=== PATIENT | male | born 1955 | race Caucasian/White ===

== ENCOUNTER 2017-04-15 17:47 | Inpatient (IN) | payer MEDICARE, MEDICAID ==
--- NOTE | 2017-04-15 18:04 | ED Physician Chart ---
ED Chief Complaint/HPI - Patient Information Date Seen:: 04/15/17 Time Seen:: 18:02 Chief Complaint:: ALOC, HICUPS, DEMENTIA History of Present Illness:: The patient is nonverbal and unable to understand commands or questions. The patient was sent to the hospital for evaluation of Is lethargy, generalized weaknes, not opening his eyes and inability to swallow.The patients state he is less alert than normal. Allergies:: Allergies Allergy/AdvReac Type Severity Reaction Status Date / Time tetracycline AdvReac Verified 04/15/17 17:56 Vitals:: Vital Signs - 8 hr 04/15/17 17:57 Temp 98.3 F HR 74 RR 16 BP 140/80 O2 Sat % 98 ED Review of Systems - Review of Systems General/Constitutional: Other (The patient is too altered to provide a review of systems.) ED Past Medical History - Past Medical History Past Medical History: Dementia, Other (urosepsis.) Social History: (HEAVY USE OF ETOH AND TOBACCO IN THE PAST), Care Facility Surgical History: None Psychiatricy History: Depression Family Medical History - Family Member Father History Unknown: Yes ED Physical Exam - Physical Examination Other Gen/Cons comments:: THIS 61 YEAR OLD MALE IS LAYING IN BED WITH NO EYE OPENING OR MOVEMENT EXCEPT FOR HICUPS. HE HAS A TACHYCARDIA IN THE 115-120 RANGE. HE DOES NOT RESPOND TO VERBAL QUESTIONS OR COMMANDS. NO WITHDRAWL TO PAINFUL STIMULATION. Head: Atraumatic Other Head comments:: No visible or palpable evidence of head trauma. Eyes: Lids, conjuctiva normal, PERRL ( Patient does not follow EOM commands.) Skin: No rash, No skin lesions, No ecchymosis, Well hydrated Other Skin comments:: Diaphoretic. Neck: No JVD ( Teeth are clenched in the oral mucosa appears tacky. Intact gag reflex.) Other Neck comments:: Increased muscle tone with AP flexion AND LATERAL ROTATION TO BOTH THE RIGHT AND LEFT. Respiratory: Nl effort/Exclusion, Clear to Auscultation, No Wheeze/Rhonchi/Rales Cardio Vascular: RRR Other Cardio Vascular comments:: Tachycardia in the 115 to 120 range. No murmurs, gallops or rubs are appreciated on auscultation. GI: No tenderness/rebounding/guarding, No organomegaly, No hernia, Normal BS's, Nondistended, No mass/bruits : No CVA tenderness Extremities: No tenderness or effusion, No edema Other Extremities comments:: The patient has increased cogwheel rigidity in all four extremities. No peripheral edema. Pulses are adequate in all four extremities. Other Neuro/Psych comments:: The patient is unresponsive to verbal questions or orders. Nonambulatory. Unable to test motor strength due to altered mental status. ED Labs/Radiology/EKG Results - Lab Results Results: Laboratory Tests 04/15/17 04/15/17 04/15/17 18:19 18:19 18:19 WBC 20.0 H D RBC 5.17 Hgb 15.2 D Hct 45.6 D MCV 88.2 MCH 29.4 MCHC Differential 33.3 RDW 13.8 Plt Count 180 D MPV 8.4 Sodium 136 Potassium 4.1 Chloride 105 Carbon Dioxide 21.8 Anion Gap 13.3 BUN 15 Creatinine 0.9 Est GFR ( Amer) > 60.0 Est GFR (Non-Af Amer) > 60.0 BUN/Creatinine Ratio 16.7 Glucose 172 H Whole Bld Lactic Acid Calcium 9.8 Total Bilirubin 0.8 AST 9 L ALT 7 Alkaline Phosphatase 89 Troponin I 0.01 Total Protein 7.3 Albumin 4.4 Globulin 2.9 Albumin/Globulin Ratio 1.5 04/15/17 18:19 WBC RBC Hgb Hct MCV MCH MCHC Differential RDW Plt Count MPV Sodium Potassium Chloride Carbon Dioxide Anion Gap BUN Creatinine Est GFR ( Amer) Est GFR (Non-Af Amer) BUN/Creatinine Ratio Glucose Whole Bld Lactic Acid 2.93 H* Calcium Total Bilirubin AST ALT Alkaline Phosphatase Troponin I Total Protein Albumin Globulin Albumin/Globulin Ratio Laboratory Tests 04/15/17 04/15/17 04/15/17 18:19 18:19 18:19 WBC 20.0 H D RBC 5.17 Hgb 15.2 D Hct 45.6 D MCV 88.2 MCH 29.4 MCHC Differential 33.3 RDW 13.8 Plt Count 180 D MPV 8.4 Sodium 136 Potassium 4.1 Chloride 105 Carbon Dioxide 21.8 Anion Gap 13.3 BUN 15 Creatinine 0.9 Est GFR ( Amer) > 60.0 Est GFR (Non-Af Amer) > 60.0 BUN/Creatinine Ratio 16.7 Glucose 172 H Whole Bld Lactic Acid Calcium 9.8 Total Bilirubin 0.8 AST 9 L ALT 7 Alkaline Phosphatase 89 Troponin I 0.01 Total Protein 7.3 Albumin 4.4 Globulin 2.9 Albumin/Globulin Ratio 1.5 04/15/17 18:19 WBC RBC Hgb Hct MCV MCH MCHC Differential RDW Plt Count MPV Sodium Potassium Chloride Carbon Dioxide Anion Gap BUN Creatinine Est GFR ( Amer) Est GFR (Non-Af Amer) BUN/Creatinine Ratio Glucose Whole Bld Lactic Acid 2.93 H* Calcium Total Bilirubin AST ALT Alkaline Phosphatase Troponin I Total Protein Albumin Globulin Albumin/Globulin Ratio The patient has a white count of 20,000 and a lactic acid of 2.93. Mentation of these 2 findings puts the patient in the severe sepsis category the patient is currently receiving 30 mL per KG of normal saline, 2 g of ceftriaxone and 750 mg Levaquin. Will be admitted for continued treatment of severe sepsis. I repeat lactic acid has been ordered. You have - Radiology Results Results: Single view AP chest x-ray: No cardiomegaly or CHF. Increased interstitial markings in the left BASILAR region CONSISTENT WITH ATELECTASIS OR EARLY PULMONARY INFILTRATE. No pneumothorax. No pleural effusion's. Impression: suggestive infiltrate in the left lower lung zone. possible pneumonia. ED Assessment - Assessment General Assessment: CASE SUMMARY: this 61-year-old male with severe dementia was transferred to the emergency department for evaluation of decreased mental status. The history was limited by the information provided from the nursing facility and the patient's inability to answer questions. On physical examination he was not awake and did not respond to verbal questions or commands. There was no evidence of recent head trauma. Pupils were equal and reactive to light. The lungs were clear on examination and chest x-ray showed a possible left lower lung infiltrate. The cardiovascular exam was unremarkable Except for a sinus tachycardia in the 120 range. The patient had no rash or decubitus ulcers. Laboratory studies showed a white count in the 20 thousand range. Electrolytes were all within normal parameters. Renal and liver function studies were unremarkable. The serum lactic acid was elevated in the 2.90 range. The patient was felt to have severe sepsis and was treated with 30 mL per kilogram normal saline. Patient was also treated with IV ceftriaxone and Levaquin for presumed pneumonia. Patient admitted in otherwise stable condition to the ICU. MDM FOR DECREASED MENTAL STATUS: NOT hyponatremia based on laboratory studies. NOT Hypoglycemia based on laboratory studies. NOT Hepatic encephalopathy based on normal liver function test. NOT Renal failure based on lab results. NOT UTI Based on lab results. CRITICAL CARE FOR TREATMENT OF SEVERE SEPSIS WITH IV FLUID AND AND ANTIBIOTICS. TOTAL TIME OF 60 MINUTES EXCLUSIVE OF ANY PROCEDURES PERFORMED. ED Septic Shock - . Is Septic Shock (SBP<90, OR Lactate>4 mmol\L) present?: No - <6hrs of presentation: Vital Signs: Vital Signs - 8 hr 04/15/17 17:57 Temp 98.3 F HR 74 RR 16 BP 140/80 O2 Sat % 98 ED Reassessment (Disposition) - Reassessment Reassessment Condition:: Improved - Diagnosis Diagnosis:: SEVERE SEPSIS OF UNCERTAIN SOURCE, SEVERE DEMENTIA, DEHYDRATION - Aftercare/Follow up Instructions Aftercare/Follow-Up Instructions:: Counseled pt & family regarding lab results/ diagnosis & need follow up - Patient Disposition Discharge/Transfer:: Acute Care w/in this hosp ED Discharge Plan - Patient Disposition Admit/Discharge/Transfer: Acute Care w/in this hosp Condition at Disposition: Guarded
[2017-04-15] MEDS ORDERED: Sodium Chloride 0.9% 2,500 ML IV ONE (18:15)
[2017-04-15 18:31] LABS: MEAN CELL VOLUME 88.2 fl (80-99); MEAN CORPUSCULAR HEMOGLOBIN 29.4 pg (26.0-30.0); MEAN CORPUSCULAR HGB CONC 33.3 pg (28.0-36.0); MEAN PLATELET VOLUME 8.4 fl; RED BLOOD COUNT 5.17 Mil/cmm (4.30-5.70); RED CELL DISTRIBUTION WIDTH 13.8 % (11.5-20.0)
[2017-04-15 18:45] LABS: ALB/GLOB RATIO 1.5 (1.0-1.8); ALKALINE PHOSPHATASE 89 U/L (34-104); ANION GAP 13.3 (7.0-16.0); BILIRUBIN,TOTAL 0.8 mg/dL (0.3-1.0); BUN - UREA NITROGEN 15 mg/dL (7-25); BUN/CREATININE RATIO 16.7; CALCIUM SERUM 9.8 mg/dL (8.6-10.3); CARBON DIOXIDE 21.8 mEq/L (21.0-31.0); CHLORIDE 105 mEq/L (98-107); CREATININE - SERUM 0.9 mg/dL (0.7-1.3); GLUCOSE 172 mg/dL (70-105); POTASSIUM SERUM 4.1 mEq/L (3.5-5.1); SGOT 9 U/L (13-39); SGPT/ALT 7 U/L (7-52); SODIUM SERUM 136 mEq/L (136-145)
[2017-04-15 19:01] LABS: HEMATOCRIT 45.6 % (39.0-49.0); HEMOGLOBIN 15.2 gm/dL (13.2-17.3)
[2017-04-15 19:02] LABS: PLATELET COUNT 180 Th/cmm (150-400)
[2017-04-15] MEDS ORDERED: Prochlorperazine 5 mg/mL 2mL Vial IVP STA (19:45)
[2017-04-15] MEDS ORDERED: cefTRIAXone 2 GM in Sodium Chloride 0.9% 100 ML IV ONE (19:48)
[2017-04-15] MEDS ORDERED: Levofloxacin 750mg/150mL 750 MG/150 ML BAG IV ONE ×2 (19:49→19:57)
[2017-04-15] MEDS ORDERED: Prochlorperazine 5 mg/mL 2mL Vial ONE (19:49)
[2017-04-15 20:56] LABS: URINE BILIRUBIN NEGATIVE (NEGATIVE); URINE BLOOD NEGATIVE (NEGATIVE); URINE GLUCOSE (UA) NEGATIVE (NEGATIVE); URINE KETONE NEGATIVE (NEGATIVE); URINE PROTEIN TRACE mg/dL (NEGATIVE); URINE UROBILINOGEN 0.2 E.U./dL (0.2 - 1.0)
[2017-04-15 20:58] LABS: URINE COLOR YELLOW
[2017-04-15 21:01] LABS: AMPHETAMINE URINE NEGATIVE (NEGATIVE); BARBITURATES URINE NEGATIVE (NEGATIVE); METHADONE URINE NEGATIVE (NEGATIVE); URINE BACTERIA NONE SEEN /hpf (NONE SEEN); URINE EPITHELIAL CELLS NONE SEEN /lpf (FEW); URINE RBC NONE SEEN /hpf (0-5); URINE WBC NONE SEEN /hpf (0-5)
[2017-04-15 21:07] LABS: BAND NEUTROPHILE 10 % (0-10); BASOPHIL 0 % (0-3); EOSINOPHIL 0 % (0-5); NEUTROPHILS 81 % (40-80); TOTAL CELLS COUNTED 100
[2017-04-15 21:08] LABS: PLATELET ESTIMATE ADEQUATE (NORMAL); PLATELET MORPHOLOGY NORMAL (NORMAL)
--- NOTE | 2017-04-15 23:40 | Consultation ---
Consult Note - Consult Note Service Date: 04/15/17 Referring Physician: Toñito Baldwin Consult Note: PHYSICIAN Consultation Note: Date of Admission: 04/15/17 Purpose of Consultation: Chief Complaint: History of Present Illness: Patient AKIN AVILES was admitted to location Intensive Care Unit with SEVERE SEPSIS. Past Medical History: Allergies Allergy/AdvReac Type Severity Reaction Status Date / Time tetracycline AdvReac Verified 04/15/17 17:56 Vital Signs Temp 97.8 F 04/15/17 23:03 Pulse 98 04/15/17 23:03 Resp 19 04/15/17 23:03 BP 123/75 04/15/17 23:03 Pulse Ox 98 04/15/17 23:03 Home Medication Medication Instructions Recorded Type Acetaminophen [Pain Reliever] 650 mg PO Q4H PRN 03/17/14 History Docusate Sodium [Colace] 100 mg PO BID 03/17/14 History Magnesium Hydroxide [Milk of 30 ml PO HS PRN 03/17/14 History Magnesia] Melatonin 1 tab PO HS 03/17/14 History Multimineral/Multivitamin 1 tab PO DAILY 03/17/14 History [Multivitamin & Multimineral] clonazePAM [klonoPIN*] 0.25 mg PO Q6HR 03/17/14 History Magnesium Hydroxide [Milk of 30 ml PO PRN PRN 10/25/15 History Magnesia] Memantine [Namenda] 5 mg PO BID 10/25/15 History Current Medications Generic Name Dose Route Start Last Admin Trade Name Freq PRN Reason Stop Dose Admin Dextrose/Sodium Chloride 1,000 mls @ 75 mls/hr 04/15/17 22:04 D5-0.45ns IV 06/14/17 22:03 .[id number] CHAVO Piperacillin Sod/Tazobactam 50 mls @ 100 mls/hr 04/16/17 00:00 Sod 3.375 gm/ Sodium Chloride IV 06/15/17 00:00 Q6HR CHAVO Review of Systems: A 12 point ROS was reviewed with the pertinent positive and negatives noted in the HPI. Family Medical History Unknown Physical Exam: General: HEENT: Cardio: Respiratory: Abdominal: Genital/Urinary: Extremities: Neurological: Assessment: leukocytosis, bandemia, lactic acidosis. Source unknown. Plan: Sepsis w/u repeat lactic acid in aaam. Conitue zosyn. Add vanco IV as per pharmacy. Signed, Cm Alvarado M.D. [id number]
--- NOTE | 2017-04-15 23:40 | Consultation ---
Consult Note - Consult Note Service Date: 04/15/17 Consult Note: PHYSICIAN Consultation Note: Date of Admission: 04/15/17 Purpose of Consultation: Chief Complaint: History of Present Illness: Patient AKIN AVILES was [facility] with SEVERE SEPSIS. Past Medical History: Allergies Allergy/AdvReac Type Severity Reaction Status Date / Time tetracycline AdvReac Verified 04/15/17 17:56 Vital Signs Temp 97.8 F 04/15/17 23:03 Pulse 98 04/15/17 23:03 Resp 19 04/15/17 23:03 BP 123/75 04/15/17 23:03 Pulse Ox 98 04/15/17 23:03 Home Medication Medication Instructions Recorded Type Acetaminophen [Pain Reliever] 650 mg PO Q4H PRN 03/17/14 History Docusate Sodium [Colace] 100 mg PO BID 03/17/14 History Magnesium Hydroxide [Milk of 30 ml PO HS PRN 03/17/14 History Magnesia] Melatonin 1 tab PO HS 03/17/14 History Multimineral/Multivitamin 1 tab PO DAILY 03/17/14 History [Multivitamin & Multimineral] clonazePAM [klonoPIN*] 0.25 mg PO Q6HR 03/17/14 History Magnesium Hydroxide [Milk of 30 ml PO PRN PRN 10/25/15 History Magnesia] Memantine [Namenda] 5 mg PO BID 10/25/15 History Current Medications Generic Name Dose Route Start Last Admin Trade Name Freq PRN Reason Stop Dose Admin Dextrose/Sodium Chloride 1,000 mls @ 75 mls/hr 04/15/17 22:04 D5-0.45ns IV 06/14/17 22:03 .[id number] CHAVO Piperacillin Sod/Tazobactam 50 mls @ 100 mls/hr 04/16/17 00:00 Sod 3.375 gm/ Sodium Chloride IV 06/15/17 00:00 Q6HR CHAVO Review of Systems: A 12 point ROS was reviewed with the pertinent positive and negatives noted in the HPI. Family Medical History Family Medical History Start: 04/15/17 23: 03 Freq: ONCE Status: Active Document 04/15/17 23:03 MIN (Rec: 04/15/17 23:12 MIN [id number] ) Family Medical History Father History Unknown Yes Physical Exam: General: HEENT: NECK: Cardio: Respiratory: Abdominal: Genital/Urinary: Extremities: Neurological: Assessment: Plan: Signed, Cm Alvarado M.D. [id number]
[2017-04-16] MEDS ORDERED: Piperacillin Sodium/Tazobact 3.375 gm Vial IV ONE (00:46)
[2017-04-16] MEDS: D5-0.45NS 1,000 ML IV SCH ×2 (01:01→14:48)
[2017-04-16 05:32] LABS: HEMATOCRIT 40.8 % (39.0-49.0); HEMOGLOBIN 13.7 gm/dL (13.2-17.3); MEAN CELL VOLUME 87.7 fl (80-99); MEAN CORPUSCULAR HEMOGLOBIN 29.5 pg (26.0-30.0); MEAN CORPUSCULAR HGB CONC 33.6 pg (28.0-36.0); MEAN PLATELET VOLUME 9.4 fl; PLATELET COUNT 161 Th/cmm (150-400); RED BLOOD COUNT 4.66 Mil/cmm (4.30-5.70); RED CELL DISTRIBUTION WIDTH 13.7 % (11.5-20.0)
[2017-04-16 05:54] LABS: ALB/GLOB RATIO 1.4 (1.0-1.8); ALKALINE PHOSPHATASE 69 U/L (34-104); BILIRUBIN,TOTAL 1.1 mg/dL (0.3-1.0); BUN - UREA NITROGEN 13 mg/dL (7-25); BUN/CREATININE RATIO 14.4; CALCIUM SERUM 8.8 mg/dL (8.6-10.3); CARBON DIOXIDE 23.9 mEq/L (21.0-31.0); CHLORIDE 107 mEq/L (98-107); CREATININE - SERUM 0.9 mg/dL (0.7-1.3); GLUCOSE 155 mg/dL (70-105); POTASSIUM SERUM 3.9 mEq/L (3.5-5.1); SGOT 10 U/L (13-39); SGPT/ALT 7 U/L (7-52); SODIUM SERUM 137 mEq/L (136-145)
[2017-04-16 05:56] VITALS: BP 123/75
[2017-04-16 06:15] LABS: WHITE BLOOD COUNT 17.8 Th/cmm (4.8-10.8)
[2017-04-16 06:26] LABS: BAND NEUTROPHILE 6 % (0-10); NEUTROPHILS 80 % (40-80); TOTAL CELLS COUNTED 100
--- NOTE | 2017-04-16 08:07 | Diagnostic Imaging Report ---
Portable chest x-ray HISTORY: Shortness of breath Allowing for portable technique in a poor inspiration, the heart size is normal. A linear density is noted in the left lower lobe. Findings may be associated with scarring or subsegmental atelectasis no other focal processes. No hilar or mediastinal abnormalities. Incidentally noted is dilated loops of bowel below the diaphragm. IMPRESSION: 1. Linear density within the left lower lobe that may be associated with scarring or subsegmental atelectasis.
[2017-04-16] MEDS ORDERED: Magnesium Hydroxide (MOM) 30 mL UDC PO PRN (08:48)
[2017-04-16] MEDS ORDERED: MAGNESIUM HYDROXIDE PO PRN (08:48)
[2017-04-16] MEDS ORDERED: MULTIVITAMIN PO SCH (09:00)
[2017-04-16] MEDS ORDERED: MULTIMINERAL PO SCH (09:00)
[2017-04-16] MEDS ORDERED: VTE Chemical Prophylaxis Screen/Admission MC PRN (10:15)
[2017-04-16] MEDS ORDERED: Diatrizoate Meglumine/Diatri 30 mL Sol PO ONE ×2 (12:17→14:37)
--- NOTE | 2017-04-16 12:40 | Diagnostic Imaging Report ---
Portable chest x-ray HISTORY: Shortness of breath, nasogastric tube placement Compared to prior exam performed April 15, 2017, a nasogastric tube has been inserted. The tip projects over the stomach. No change in the cardiopulmonary status. IMPRESSION: 1. New nasogastric tube projecting over the stomach 2. No change in the cardiopulmonary status
--- NOTE | 2017-04-16 12:40 | History & Physical ---
ADMIT DATE: 04/16/2017 CHIEF COMPLAINT: Unable to obtain. HISTORY OF PRESENT ILLNESS: He is a 61-year-old male who resides at [facility] has a diagnosis of dementia along with a history of psychotic disorder, history of significant dysphagia and a history of osteoarthritis, brought into the Emergency Room from longterm for evaluation of weakness, lethargy and refusing to eat. When the patient arrived in the Emergency Room noted to have leukocytosis with elevated lactic acid. The patient was worked up in the ER and subsequently admitted to the hospital based on the positive findings on the lab. The patient does not provide any meaningful history. I did review his chart and noted that he was admitted in month of October for abdominal distention, where the patient was noted to have dilated sigmoid and rectum and the patient had an attempted colonoscopy as well. The patient was also noted to have admission at [facility] as well for possible abdominal distention. The patient does not provide a meaningful history. The patient noted to have E. coli UTI and also noted to have cyst on CT abdomen. The patient currently admitted to ICU with sepsis protocol, currently on IV Zosyn and vancomycin. The patient was seen by Infectious Disease last evening. PAST MEDICAL HISTORY: Remarkable for: 1. DJD. 2. Dementia. 3. Hypertension. 4. Coronary artery disease. 5. Psychotic disorder. 6. Dysphagia. 7. Bed bound condition. MEDICATIONS AT SKILLED NURSING: The patient is taking lactulose, melatonin, milk of magnesia, multivitamin, Namenda, Tylenol, cranberry, Colace, and Klonopin. ALLERGIES: THE PATIENT IS ALLERGIC TO TETRACYCLINE. SOCIAL HISTORY: The patient lives currently in a longterm. No smoking, alcohol or drug use. FAMILY HISTORY: Unavailable. REVIEW OF SYSTEMS: Unable to obtain from the patient. PHYSICAL EXAMINATION: GENERAL: The patient is alert, awake, lying in the bed. VITAL SIGNS: Temperature 98.1, pulse is 90, respiratory rate is 18, blood pressure 134/89. HEENT: Normocephalic, atraumatic. Extraocular muscles are intact. Tongue was pink and coated. Multiple absent teeth noted. Poor oral hygiene noted. NECK: Supple, no JVD, no lymphadenopathy, no thyromegaly. HEART: Both heart sounds are regular. No murmur. CHEST: Lung equal expansion. Mild expiratory wheezing. Decreased breath sounds noted. ABDOMEN: Soft. Significant tenderness and guarding noted throughout the abdominal area. Bowel sounds were absent. EXTREMITIES: No edema, no cyanosis. NEUROLOGIC: Alert, awake, not following any commands. Moving upper and lower extremities. Available diagnostic data performed in the Emergency Room has been reviewed. CLINICAL IMPRESSION: 1. A 61-year-old male resident of longterm, has a recurrent GI problem in the form of constipation, distention, presented to Emergency Room for evaluation of weakness, lethargy, was refusing to eat. Workup revealed leukocytosis. Chest x-ray was questionable atelectasis. Urinalysis is unremarkable. Etiology of his leukocytosis determined in the presence of recurrent GI symptoms with significant dysphagia. Differential diagnosis for this patient is possibly GI etiology, ruled out diverticulitis, possibilities of aspiration pneumonia is always there. 2. Dementia. 3. Dysphagia. PLAN: I will keep the patient n.p.o. for now. Admit this patient to Telemetry Unit. IV antibiotic with Zosyn and vancomycin. CT scan of the abdomen, pelvis, and chest. Obtain Infectious Disease consultation. Based on the CT abdomen and pelvis we will make further decision and plan. Follow up lab will be done as well and will follow consultants' recommendations. Care plan has been reviewed and discussed with RN. [facility]# [id number]
--- NOTE | 2017-04-16 13:57 | Diagnostic Imaging Report ---
Renal ultrasound HISTORY: Mass. The right kidney measures approximately 12.0 x 6.7 x 7.0 cm. There is an approximate 9.1 x 8.1 x 8.4 cm probably sonolucent cystic lesion within the upper pole. A small segment of echogenicity is seen within the wall suggesting calcification corresponds to findings noted on a prior CT scan of October 25, 2015. Slight irregularity noted along the margin at the interface with the kidney. The overall size has not changed significantly since the prior CT scan. However, in view of the complex appearance, a CT scan following administration of intravenous contrast would provide additional detail. No hydronephrosis. The left kidney measures 10.3 x 5.7 x 5.5 cm. No focal lesions. No hydronephrosis. The urinary bladder cannot be well evaluated due to lack of distention. IMPRESSION: 1. Approximate 9.0 cm predominantly cystic the slightly complex mass within the upper pole of the right kidney. Finding corresponds to the changes noted on the CT scan of October 25, 2015. A CT scan with intravenous contrast or continued follow up/monitoring is recommended.
--- NOTE | 2017-04-16 15:47 | Diagnostic Imaging Report ---
CT Chest without IV contrast HISTORY: Shortness of breath COMPARISON: Chest x-ray performed on 04/16/2017. Technique: Axial images were obtained from the base of the neck to the upper abdomen without IV contrast. Reconstructions were made. Total DLP to 12, CTD I 17.9 Findings: NG tube is seen terminating in the stomach. Exam is limited due to lack of IV contrast. No evidence of mediastinal lymphadenopathy. Mild atherosclerosis is noted including coronary artery calcifications. Hypoventilatory an atelectatic change of the lungs are seen with trace bilateral effusions and bibasilar passive atelectatic consolidative changes. Tiny pleural-based nodular opacities are seen along the right lung the largest measuring 4 mm (image 52, series 4). Degenerative changes of the spine are noted. Small Hiatal hernia is seen with gastroesophageal reflux noted. IMPRESSION: Hypoventilatory and atelectatic lung changes with trace bilateral effusions and bibasilar passive atelectatic consolidative changes. Pneumonia of the lung bases cannot be excluded. Tiny right-sided pleural-based nodular opacities which may be due to prior infectious or inflammatory process. Consider follow up surveillance in 12 months if indicated. Small hiatal hernia with gastroesophageal reflux noted. NG tube is also noted with tip in the stomach. Mild atherosclerotic vascular disease.
--- NOTE | 2017-04-16 15:55 | Diagnostic Imaging Report ---
CT abdomen and pelvis without intravenous contrast Indication: Abdominal tenderness Comparison: CT abdomen on 10/25/2015 and, Ultrasound renal on 04/16/2016 Technique: Axial images were obtained from the lung bases to the bilateral proximal femurs without IV contrast. Coronal reconstructions were made. total DLP: 859, CTDI14.4 FINDINGS: NG tube is seen terminating within the stomach. Gastroesophageal reflux is noted. Multiple distended loops of small and large bowel are seen greatest within large bowel loops. There is severe distal fecal impaction with associated distention of the sigmoid colon. Mild inflammatory changes are seen along the mesenteric fat planes extending to the right lower quadrant with small amount of free fluid also noted. Fajardo catheter is seen with pockets of gas in the urinary bladder. No discrete focal hepatic or splenic lesions. Punctate pancreatic calcifications likely due to previous pancreatitis. Again noted is 10 x 8 cm low-density right renal mass or calcifications without significant change since previous CT examination. No hydronephrosis. Moderate atherosclerosis is noted. Degenerative changes of the spine are noted. IMPRESSION: Severe distal fecal impaction. There is associated severe distention of the sigmoid colon and proximal bowel loops. Clinical correlation and follow-up is recommended. Inflammatory changes changes along the mesentery and right lower quadrant with small amount of free fluid noted a few air-fluid levels within small bowel loops. Inflammatory changes are most pronounced in the right lower quadrant. The appendix was not visualized. There are areas of small bowel wall thickening in the right lower quadrant.. Inflammatory process and partial low-grade obstructive changes of the distal small bowel along the right lower quadrant cannot be excluded. Again follow-up is recommended. NG tube within the stomach with gastroesophageal reflux also noted. Large right renal cyst with calcifications probably a complex cyst as seen on previous CT examination ultrasound. Note exam is limited due to lack of IV contrast. Continue follow up surveillance is recommended. Fajardo catheter pockets of gas in the urinary bladder. Atherosclerotic vascular disease.
--- NOTE | 2017-04-16 17:33 | Infectious Disease Prog Note ---
Infectious Disease Subjective - Review of Systems Service Date: 04/16/17 Subjective: No change. No fever. Infectious Disease Objective - Results Result Diagrams: 04/16/17 04:42 04/16/17 04:42 Recent Labs: Laboratory Last Values WBC 17.8 Th/cmm (4.8-10.8) H 04/16/17 04:42 RBC 4.66 Mil/cmm (4.30-5.70) 04/16/17 04:42 Hgb 13.7 gm/dL (13.2-17.3) 04/16/17 04:42 Hct 40.8 % (39.0-49.0) D 04/16/17 04:42 MCV 87.7 fl (80-99) 04/16/17 04:42 MCH 29.5 pg (26.0-30.0) 04/16/17 04:42 MCHC Differential 33.6 pg (28.0-36.0) 04/16/17 04:42 RDW 13.7 % (11.5-20.0) 04/16/17 04:42 Plt Count 161 Th/cmm (150-400) 04/16/17 04:42 MPV 9.4 fl 04/16/17 04:42 Neutrophils % [employer] SUPERVISOR 04/16/17 04:42 Band Neutrophils % 6 % (0-10) 04/16/17 04:42 Lymphocytes % [employer] SUPER[employer]OR 04/16/17 04:42 Monocytes % [employer] SUPERVISOR 04/16/17 04:42 Eosinophils % [employer] SUPERVISOR 04/16/17 04:42 Basophils % [employer] SUPERVISOR 04/16/17 04:42 Neutrophils (Manual) 80 % (40-80) 04/16/17 04:42 Lymphocytes 11 % (20-50) L 04/16/17 04:42 Monocytes 3 % (2-10) 04/16/17 04:42 Eosinophils 0 % (0-5) 04/15/17 18:19 Basophils 0 % (0-3) 04/15/17 18:19 Platelet Estimate ADEQUATE (NORMAL) 04/15/17 18:19 Platelet Morphology NORMAL (NORMAL) 04/15/17 18:19 RBC Morph Micro Appear NORMAL (NORMAL) 04/15/17 18:19 Sodium 137 mEq/L (136-145) 04/16/17 04:42 Potassium 3.9 mEq/L (3.5-5.1) 04/16/17 04:42 Chloride 107 mEq/L (98-107) 04/16/17 04:42 Carbon Dioxide 23.9 mEq/L (21.0-31.0) 04/16/17 04:42 Anion Gap 10.0 (7.0-16.0) 04/16/17 04:42 BUN 13 mg/dL (7-25) 04/16/17 04:42 Creatinine 0.9 mg/dL (0.7-1.3) 04/16/17 04:42 Est GFR ( Amer) > 60.0 ml/min (>90) 04/16/17 04:42 Est GFR (Non-Af Amer) > 60.0 ml/min 04/16/17 04:42 BUN/Creatinine Ratio 14.4 04/16/17 04:42 Glucose 155 mg/dL (70-105) H 04/16/17 04:42 Whole Bld Lactic Acid 2.77 mmol/L (0.60-1.99) H* 04/16/17 07:01 Calcium 8.8 mg/dL (8.6-10.3) 04/16/17 04:42 Total Bilirubin 1.1 mg/dL (0.3-1.0) H 04/16/17 04:42 AST 10 U/L (13-39) L 04/16/17 04:42 ALT 7 U/L (7-52) 04/16/17 04:42 Alkaline Phosphatase 69 U/L (34-104) 04/16/17 04:42 Troponin I 0.01 ng/mL (0.01-0.05) 04/15/17 18:19 Total Protein 6.2 gm/dL (6.0-8.3) 04/16/17 04:42 Albumin 3.6 gm/dL (4.2-5.5) L 04/16/17 04:42 Globulin 2.6 gm/dL 04/16/17 04:42 Albumin/Globulin Ratio 1.4 (1.0-1.8) 04/16/17 04:42 Urine Source RANDOM 04/15/17 19:30 Urine Color YELLOW 04/15/17 19:30 Urine Clarity CLEAR (CLEAR) 04/15/17 19:30 Urine pH 6.0 (4.6 - 8.0) 04/15/17 19:30 Ur Specific [place] 1.020 (1.005-1.030) 04/15/17 19:30 Urine Protein TRACE mg/dL (NEGATIVE) 04/15/17 19:30 Urine Glucose (UA) NEGATIVE mg/dL (NEGATIVE) 04/15/17 19:30 Urine Ketones NEGATIVE mg/dL (NEGATIVE) 04/15/17 19:30 Urine Blood NEGATIVE (NEGATIVE) 04/15/17 19:30 Urine Nitrate NEGATIVE (NEGATIVE) 04/15/17 19:30 Urine Bilirubin NEGATIVE (NEGATIVE) 04/15/17 19:30 Urine Urobilinogen 0.2 E.U./dL (0.2 - 1.0) 04/15/17 19:30 Ur Leukocyte Esterase NEGATIVE (NEGATIVE) 04/15/17 19:30 Urine RBC NONE SEEN /hpf (0-5) 04/15/17 19:30 Urine WBC NONE SEEN /hpf (0-5) 04/15/17 19:30 Ur Epithelial Cells NONE SEEN /lpf (FEW) 04/15/17 19:30 Urine Bacteria NONE SEEN /hpf (NONE SEEN) 04/15/17 19:30 Urine Opiates Screen NEGATIVE (NEGATIVE) 04/15/17 19:30 Urine Methadone Screen NEGATIVE (NEGATIVE) 04/15/17 19:30 Ur Barbiturates Screen NEGATIVE (NEGATIVE) 04/15/17 19:30 Ur Tricyclics Screen NEGATIVE (NEGATIVE) 04/15/17 19:30 Ur Phencyclidine Scrn NEGATIVE (NEGATIVE) 04/15/17 19:30 Amphetamines Screen NEGATIVE (NEGATIVE) 04/15/17 19:30 U Methamphetamines Scrn NEGATIVE (NEGATIVE) 04/15/17 19:30 U Benzodiazepines Scrn NEGATIVE (NEGATIVE) 04/15/17 19:30 U Cocaine Metab Screen NEGATIVE (NEGATIVE) 04/15/17 19:30 U Cannabinoids Screen NEGATIVE (NEGATIVE) 04/15/17 19:30 - Physical Exam Vitals and I&O: Vital Signs Temp 98.2 F 04/16/17 13:00 Pulse 101 04/16/17 13:00 Resp 16 04/16/17 13:00 BP 96/57 04/16/17 13:00 Pulse Ox 94 04/16/17 13:00 Intake & Output 04/15/17 04/16/17 04/16/17 18:59 06:59 18:59 Intake Total 100 1550 Balance 100 1550 Weight (lbs) 73.482 kg Intake: Intake, IV Amount 100 1550 D5-0.45NS 1,000 ml @ 75 1000 mls/hr IV .[id number] [facility] Rx #:[id number] Piperacillin Sodium/ 100 50 Tazobact 3.375 gm In Sodium Chloride 0.9% 50 ml @ 100 mls/hr IV Q6HR [facility] Rx#:[id number] Vancomycin HCl 1 gm In 250 Sodium Chloride 0.9% 250 ml @ 165 mls/hr IV ONCE ONE Rx#:[id number] Vancomycin HCl 1 gm In 250 Sodium Chloride 0.9% 250 ml @ 165 mls/hr IV Q12H [facility] Rx#:[id number] Oral 0 Other: # Voids 2 # Bowel Movements 0 Active Medications: Current Medications Acetaminophen (Tylenol) 650 mg PO Q4H PRN PRN Reason: Pain Stop: 06/15/17 08:47 Clonazepam (Klonopin) 0.5 mg PO Q6HR PRN; Protocol PRN Reason: Nasal Congestion Stop: 06/15/17 11:59 Docusate Sodium (Colace) 100 mg PO BID [facility] Stop: 06/15/17 08:59 Last Admin: 04/16/17 16:51 Dose: 100 mg Heparin Sodium (Porcine) (Heparin) 5,000 units SUBQ Q12HR [facility] Stop: 06/15/17 20:59 Dextrose/Sodium Chloride (D5-0.45ns) 1,000 mls @ 75 mls/hr IV .[id number] [facility] Stop: 06/14/17 22:03 Last Admin: 04/16/17 14:48 Dose: 75 mls/hr Piperacillin Sod/Tazobactam (Sod 3.375 gm/ Sodium Chloride) 50 mls @ 100 mls/ hr IV Q6HR [facility] Stop: 06/15/17 00:00 Last Admin: 04/16/17 17:01 Dose: 100 mls/hr Vancomycin HCl 1 gm/ Sodium (Chloride) 250 mls @ 165 mls/hr IV Q12H [facility] Stop: 06/15/17 09:59 Last Infusion: 04/16/17 12:05 Dose: Infused Magnesium Hydroxide (Milk Of Magnesia) 30 ml PO HS PRN PRN Reason: Constipation Stop: 06/15/17 08:47 Memantine (Namenda) 5 mg PO BID [facility] Stop: 06/15/17 08:59 Last Admin: 04/16/17 16:51 Dose: 5 mg Miscellaneous (Vancomycin Iv Per Pharmacy) 1 ea [facility] PRN [facility] Stop: 06/15/17 00:59 Miscellaneous (Vte Chemical Prophylaxis Screen/ Admission) 1 [facility] PRN PRN PRN Reason: PROTOCOL Stop: 06/15/17 10:14 General: no acute distress, well developed, well nourished HEENT: atraumatic, normocephalic, PERRLA, EOMI, moist mucous membrane Neck: supple, no thyromegaly Cardiovascular: S1S2, regular Lungs: clear to auscultation bilaterally, clear to percussion Abdomen: soft, bowel sounds, no tender, no distended Extremities: no cyanosis, no clubbing, no edema Skin: intact Infectious Disease Assmt/Plan - Problem List Patient Problems: All Active Problems Depression (Acute) F32.9 INCREASED AGITATION (Acute 03/10/14) Mental health problem (Acute) F48.9 Psychosis (Acute) F29 - Assessment Assessment: 1. Sepsis, lactic acidosis improving. 2. dementia. - Plan Plan: Continue vanco IV and zosyn.
[2017-04-16] MEDS ORDERED: Non-Formulary Item 1 EA (Melatonin [Melatonin] 1 TAB) PO SCH (21:00)
[2017-04-17 05:19] LABS: MEAN CELL VOLUME 88.7 fl (80-99); MEAN CORPUSCULAR HEMOGLOBIN 29.8 pg (26.0-30.0); MEAN CORPUSCULAR HGB CONC 33.6 pg (28.0-36.0); MEAN PLATELET VOLUME 9.5 fl; PLATELET COUNT 180 Th/cmm (150-400); RED BLOOD COUNT 5.47 Mil/cmm (4.30-5.70); RED CELL DISTRIBUTION WIDTH 13.9 % (11.5-20.0)
[2017-04-17 05:33] LABS: HEMATOCRIT 48.5 % (39.0-49.0); HEMOGLOBIN 16.3 gm/dL (13.2-17.3)
[2017-04-17 05:40] LABS: WHITE BLOOD COUNT 19.5 Th/cmm (4.8-10.8)
[2017-04-17 06:20] LABS: ALB/GLOB RATIO 1.1 (1.0-1.8); ALKALINE PHOSPHATASE 59 U/L (34-104); ANION GAP 8.9 (7.0-16.0); BILIRUBIN,TOTAL 1.5 mg/dL (0.3-1.0); BUN - UREA NITROGEN 16 mg/dL (7-25); CALCIUM SERUM 9.5 mg/dL (8.6-10.3); CARBON DIOXIDE 25.1 mEq/L (21.0-31.0); CHLORIDE 105 mEq/L (98-107); GLUCOSE 178 mg/dL (70-105); SGOT 13 U/L (13-39); SGPT/ALT 8 U/L (7-52); SODIUM SERUM 136 mEq/L (136-145)
[2017-04-17 07:17] LABS: BAND NEUTROPHILE 9 % (0-10); NEUTROPHILS 78 % (40-80); TOTAL CELLS COUNTED 100
[2017-04-17] MEDS ORDERED: Probiotic Screen MC PRN (17:00)
[2017-04-17] MEDS ORDERED: MINERAL OIL ENEMA 135 ML BOTTLE RC ONE (17:13)
[2017-04-17] MEDS ORDERED: Potassium Chloride 40 MEQ, Lidocaine 1% 20mL Vial 25 MG in Sodium Chloride 0.9% 250 ML IV ONE (17:22)
[2017-04-17] MEDS ORDERED: KCL 20mEq/100mL Premix 20 MEQ/100 ML PIGGYBACK IV SCH (19:15)
--- NOTE | 2017-04-17 19:27 | Infectious Disease Prog Note ---
Infectious Disease Subjective - Review of Systems Service Date: 04/17/17 Subjective: No change. No fever. congested on VM. Infectious Disease Objective - Results Result Diagrams: 04/17/17 04:35 04/17/17 04:35 Recent Labs: Laboratory Last Values WBC 19.5 Th/cmm (4.8-10.8) H 04/17/17 04:35 RBC 5.47 Mil/cmm (4.30-5.70) 04/17/17 04:35 Hgb 16.3 gm/dL (13.2-17.3) D 04/17/17 04:35 Hct 48.5 % (39.0-49.0) D 04/17/17 04:35 MCV 88.7 fl (80-99) 04/17/17 04:35 MCH 29.8 pg (26.0-30.0) 04/17/17 04:35 MCHC Differential 33.6 pg (28.0-36.0) 04/17/17 04:35 RDW 13.9 % (11.5-20.0) 04/17/17 04:35 Plt Count 180 Th/cmm (150-400) 04/17/17 04:35 MPV 9.5 fl 04/17/17 04:35 Neutrophils % SHIPPING PROCESSOR 04/16/17 04:42 Band Neutrophils % 9 % (0-10) 04/17/17 04:35 Lymphocytes % SHIPPING PROCESSOR 04/16/17 04:42 Monocytes % SHIPPING PROCESSOR 04/16/17 04:42 Eosinophils % SHIPPING PROCESSOR 04/16/17 04:42 Basophils % SHIPPING PROCESSOR 04/16/17 04:42 Neutrophils (Manual) 78 % (40-80) 04/17/17 04:35 Lymphocytes 7 % (20-50) L 04/17/17 04:35 Monocytes 6 % (2-10) 04/17/17 04:35 Eosinophils 0 % (0-5) 04/15/17 18:19 Basophils 0 % (0-3) 04/15/17 18:19 Platelet Estimate ADEQUATE (NORMAL) 04/15/17 18:19 Platelet Morphology NORMAL (NORMAL) 04/15/17 18:19 RBC Morph Micro Appear NORMAL (NORMAL) 04/15/17 18:19 Sodium 136 mEq/L (136-145) 04/17/17 04:35 Potassium 3.0 mEq/L (3.5-5.1) L 04/17/17 04:35 Chloride 105 mEq/L (98-107) 04/17/17 04:35 Carbon Dioxide 25.1 mEq/L (21.0-31.0) 04/17/17 04:35 Anion Gap 8.9 (7.0-16.0) 04/17/17 04:35 BUN 16 mg/dL (7-25) 04/17/17 04:35 Creatinine 1.0 mg/dL (0.7-1.3) 04/17/17 04:35 Est GFR ( Amer) > 60.0 ml/min (>90) 04/17/17 04:35 Est GFR (Non-Af Amer) > 60.0 ml/min 04/17/17 04:35 BUN/Creatinine Ratio 16.0 04/17/17 04:35 Glucose 178 mg/dL (70-105) H 04/17/17 04:35 Whole Bld Lactic Acid 2.77 mmol/L (0.60-1.99) H* 04/16/17 07:01 Calcium 9.5 mg/dL (8.6-10.3) 04/17/17 04:35 Total Bilirubin 1.5 mg/dL (0.3-1.0) H 04/17/17 04:35 AST 13 U/L (13-39) 04/17/17 04:35 ALT 8 U/L (7-52) 04/17/17 04:35 Alkaline Phosphatase 59 U/L (34-104) 04/17/17 04:35 Troponin I 0.01 ng/mL (0.01-0.05) 04/15/17 18:19 Total Protein 7.0 gm/dL (6.0-8.3) 04/17/17 04:35 Albumin 3.7 gm/dL (4.2-5.5) L 04/17/17 04:35 Globulin 3.3 gm/dL 04/17/17 04:35 Albumin/Globulin Ratio 1.1 (1.0-1.8) 04/17/17 04:35 Urine Source RANDOM 04/15/17 19:30 Urine Color YELLOW 04/15/17 19:30 Urine Clarity CLEAR (CLEAR) 04/15/17 19:30 Urine pH 6.0 (4.6 - 8.0) 04/15/17 19:30 Ur Specific [place] 1.020 (1.005-1.030) 04/15/17 19:30 Urine Protein TRACE mg/dL (NEGATIVE) 04/15/17 19:30 Urine Glucose (UA) NEGATIVE mg/dL (NEGATIVE) 04/15/17 19:30 Urine Ketones NEGATIVE mg/dL (NEGATIVE) 04/15/17 19:30 Urine Blood NEGATIVE (NEGATIVE) 04/15/17 19:30 Urine Nitrate NEGATIVE (NEGATIVE) 04/15/17 19:30 Urine Bilirubin NEGATIVE (NEGATIVE) 04/15/17 19:30 Urine Urobilinogen 0.2 E.U./dL (0.2 - 1.0) 04/15/17 19:30 Ur Leukocyte Esterase NEGATIVE (NEGATIVE) 04/15/17 19:30 Urine RBC NONE SEEN /hpf (0-5) 04/15/17 19:30 Urine WBC NONE SEEN /hpf (0-5) 04/15/17 19:30 Ur Epithelial Cells NONE SEEN /lpf (FEW) 04/15/17 19:30 Urine Bacteria NONE SEEN /hpf (NONE SEEN) 04/15/17 19:30 Vancomycin Trough 7.6 ug/mL (10-20) L 04/17/17 09:00 Urine Opiates Screen NEGATIVE (NEGATIVE) 04/15/17 19:30 Urine Methadone Screen NEGATIVE (NEGATIVE) 04/15/17 19:30 Ur Barbiturates Screen NEGATIVE (NEGATIVE) 04/15/17 19:30 Ur Tricyclics Screen NEGATIVE (NEGATIVE) 04/15/17 19:30 Ur Phencyclidine Scrn NEGATIVE (NEGATIVE) 04/15/17 19:30 Amphetamines Screen NEGATIVE (NEGATIVE) 04/15/17 19:30 U Methamphetamines Scrn NEGATIVE (NEGATIVE) 04/15/17 19:30 U Benzodiazepines Scrn NEGATIVE (NEGATIVE) 04/15/17 19:30 U Cocaine Metab Screen NEGATIVE (NEGATIVE) 04/15/17 19:30 U Cannabinoids Screen NEGATIVE (NEGATIVE) 04/15/17 19:30 - Physical Exam Vitals and I&O: Vital Signs Temp 98.4 F 04/17/17 17:00 Pulse 114 04/17/17 17:00 Resp 19 04/17/17 17:00 BP 111/77 04/17/17 17:00 Pulse Ox 93 09/08/17 17:00 Intake & Output 04/17/17 04/17/17 04/18/17 06:59 18:59 06:59 Intake Total 350 705 Output Total 1100 Balance 350 -395 Weight (lbs) 74.843 kg Intake: Intake, IV Amount 350 605 Piperacillin Sodium/ 100 95 Tazobact 3.375 gm In Sodium Chloride 0.9% 50 ml @ 100 mls/hr IV Q6HR [facility] Rx#:[id number] Vancomycin HCl 1 gm In 250 250 Sodium Chloride 0.9% 250 ml @ 165 mls/hr IV Q12H [facility] Rx#:[id number] Other 100 Output: Urine 300 Other 800 Other: Stool Characteristics Liquid Active Medications: Current Medications Acetaminophen (Tylenol) 650 mg PO Q4H PRN PRN Reason: Pain Stop: 06/15/17 08:47 Last Admin: 04/17/17 01:45 Dose: 650 mg Clonazepam (Klonopin) 0.5 mg PO Q6HR PRN; Protocol PRN Reason: Nasal Congestion Stop: 06/15/17 11:59 Docusate Sodium (Colace) 100 mg PO BID [facility] Stop: 06/15/17 08:59 Last Admin: 04/17/17 17:41 Dose: 100 mg Heparin Sodium (Porcine) (Heparin) 5,000 units SUBQ Q12HR [facility] Stop: 06/15/17 20:59 Last Admin: 04/17/17 09:00 Dose: 5,000 units Dextrose/Sodium Chloride (D5-0.45ns) 1,000 mls @ 75 mls/hr IV .[id number] [facility] Stop: 06/14/17 22:03 Last Admin: 04/16/17 14:48 Dose: 75 mls/hr Piperacillin Sod/Tazobactam (Sod 3.375 gm/ Sodium Chloride) 50 mls @ 100 mls/ hr IV Q6HR [facility] Stop: 06/15/17 00:00 Last Infusion: 04/17/17 18:15 Dose: 0 mls/hr Vancomycin HCl 1.25 gm/ Sodium (Chloride) 250 mls @ 165 mls/hr IV Q12H [facility] Stop: 06/16/17 21:59 Potassium Chloride (Potassium Chloride) 20 meq in 100 mls @ 50 mls/hr IV Q2H [facility] Stop: 04/17/17 23:06 Lactobacillus Rhamnosus (Culturelle) 1 each PO DAILY [facility] Stop: 06/17/17 08:59 Magnesium Hydroxide (Milk Of Magnesia) 30 ml PO HS PRN PRN Reason: Constipation Stop: 06/15/17 08:47 Memantine (Namenda) 5 mg PO BID [facility] Stop: 06/15/17 08:59 Last Admin: 04/17/17 17:41 Dose: 5 mg Mineral Oil (Mineral Oil 30 Ml) 30 ml NG QID [facility] Stop: 06/16/17 17:14 Last Admin: 04/17/17 18:48 Dose: 30 ml Miscellaneous (Vancomycin Iv Per Pharmacy) 1 ea PRN [facility] Stop: 06/15/17 00:59 Miscellaneous (Vte Chemical Prophylaxis Screen/ Admission) 1 [facility] PRN PRN PRN Reason: PROTOCOL Stop: 06/15/17 10:14 Miscellaneous (Probiotic Screen) 1 [facility] PRN PRN PRN Reason: PROTOCOL Stop: 06/16/17 16:59 General: no acute distress, well developed, well nourished HEENT: atraumatic, normocephalic, PERRLA, EOMI, moist mucous membrane Neck: supple, no thyromegaly Cardiovascular: S1S2, regular Lungs: clear to percussion, crackles Abdomen: soft, bowel sounds, no tender, no distended Extremities: no cyanosis, no clubbing, no edema Neurological: other (Unresponsive ( dementia)) Skin: intact Infectious Disease Assmt/Plan - Problem List Patient Problems: All Active Problems Depression (Acute) F32.9 INCREASED AGITATION (Acute 03/10/14) Mental health problem (Acute) F48.9 Psychosis (Acute) F29 - Assessment Assessment: 1. Sepsis, lactic acidosis improving. 2. dementia. 3. Fecal impaction. 4. CHF. - Plan Plan: Continue zosyn. Dc vanco IV. Give lasix 40mg x1 IV and dc IVF. Nutritional Asmnt/Malnutr-PDOC - Dietary Evaluation Malnutrition Findings (Please click <Entered> for more info): Nutritional Asmnt/Malnutrition Start: 04/17/17 15: 06 Text: Status: Complete Freq: Document 04/17/17 15:06 GSUN (Rec: 04/17/17 15:26 GSUN [id number]) Nutritional Asmnt/Malnutrition Patient General Information Nutritional Screening High Risk Screening Diagnosis Recurrent GI problem, sepsis protocol Pertinent Medical Hx/Surgical Hx Dementia, psychotic disorder, dysphagia, osteoarthritis, DJD , HTN, CAD, bed bound condition Subjective Information 61 year old male from [facility]. 04/16 CT abdomen: severe distal fecal impaction, renal cyst. Spoke to RN, RN stated last BM on 04/12, pt is currently NPO with ngt to low intermittent suctioning out greenish liquid , abdomen is tender. Spoke to family at bedside, confirmed usual diet and pt's preferences. Limited physical assessment, pt appeared overall thin. Current Diet Order/ Nutrition Support NPO Pertinent Medications D5-0.45ns, Colace, MOM, Vancomycin Pertinent Labs 04/17: glucose 178H Nutritional Hx/Data Height 1.88 m Height (Calculated Centimeters) 188.0 Current Weight (lbs) 74.707 kg Weight (Calculated Kilograms) 74.7 Weight (Calculated Grams) 85757.7 [place] Body Weight 190 Weight Status Approriate GI Symptoms Cultural/Ethnic/Islam Belief Dislike fish. Usual diet at home [place] [facility]: puree, ANTHONY, 4oz HPN between meals Skin Integrity/Comment: [place] 14. SKin intact. Estimated Nutritional Goals BEE in Kcals: Using Current wt Calories/Kcals/Kg CBW 164.7lb/74.9kg Kcals Calculated 1873-2247kcal (25-30kcal/kg) Protein: Using Current wt Protein Calculated 75g (1g/kg) Fluid: ml 1873-2247ml (1ml/kcal) Nutritional Problem 1. Problem Problem Altered GI function related to Etiology bowel movement, renal aeb Signs/Symptoms: CT severe distal fecal impaction, renal cyst Intervention/Recommendation Comments 1. When medically appropriate to reusme diet, recommend pureed diet with prune juice every meal or as needed. Expected Outcomes/Goals Expected Outcomes/Goals 1. PO intake to resume and meet at least 75% of estimated nutritional needs.
[2017-04-17] MEDS: KCL 20mEq/100mL Premix 20 MEQ/100 ML PIGGYBACK IV SCH ×2 (20:06→23:01)
[2017-04-18] MEDS ORDERED: Diltiazem 5 mg/mL 25mL Vial IV ONE (05:04)
[2017-04-18 05:05] LABS: HEMATOCRIT 47.6 % (39.0-49.0); MEAN CELL VOLUME 88.2 fl (80-99); MEAN CORPUSCULAR HEMOGLOBIN 29.6 pg (26.0-30.0); MEAN CORPUSCULAR HGB CONC 33.6 pg (28.0-36.0); PLATELET COUNT 177 Th/cmm (150-400); RED BLOOD COUNT 5.39 Mil/cmm (4.30-5.70); RED CELL DISTRIBUTION WIDTH 13.8 % (11.5-20.0)
[2017-04-18 05:11] LABS: WHITE BLOOD COUNT 15.3 Th/cmm (4.8-10.8)
[2017-04-18 05:14] LABS: ALKALINE PHOSPHATASE 54 U/L (34-104); ANION GAP 10.4 (7.0-16.0); BILIRUBIN,TOTAL 1.2 mg/dL (0.3-1.0); BUN - UREA NITROGEN 28 mg/dL (7-25); BUN/CREATININE RATIO 18.7; CALCIUM SERUM 9.9 mg/dL (8.6-10.3); CARBON DIOXIDE 28.9 mEq/L (21.0-31.0); CHLORIDE 103 mEq/L (98-107); CREATININE - SERUM 1.5 mg/dL (0.7-1.3); GLUCOSE 157 mg/dL (70-105); POTASSIUM SERUM 3.3 mEq/L (3.5-5.1); SGOT 9 U/L (13-39); SGPT/ALT 6 U/L (7-52); SODIUM SERUM 139 mEq/L (136-145)
--- NOTE | 2017-04-18 07:08 | Consultation ---
DATE OF CONSULTATION: 04/17/2017 REASON FOR CONSULTATION: Fecal impaction, abdominal distention. HISTORY OF PRESENT ILLNESS: This consult was obtained through the request of Dr. Baldwin for this 61-year-old with history of dementia, psychosis, hypertension, coronary artery disease, bed bound, admitted to the hospital from rehab center for weakness, lethargy, refusing to eat. The patient was found to be having leukocytosis, elevated lactic acid. He was admitted to the hospital, was noted to have abdominal distention. GI consult was called in for further evaluation. The patient is not able to provide any history. Not communicating, even though he showed some facial expression response. PAST MEDICAL HISTORY: Dementia, psychosis, hypertension, coronary artery disease, degenerative joint disease. PAST SURGICAL HISTORY: Not known. SOCIAL HISTORY: Nonsmoker, nonalcoholic, IV drug abuser. FAMILY HISTORY: Unobtainable, noncontributory. ALLERGIES: TETRACYCLINE. MEDICATIONS AT HOME: Including melatonin, lactulose, milk of magnesia, multivitamin, Namenda, Tylenol, cranberry, Colace, and Klonopin. REVIEW OF SYSTEMS: Unobtainable. PHYSICAL EXAMINATION: GENERAL: The patient is nonverbal, noncommunicating. VITAL SIGNS: Blood pressure is 106/69, heart rate 119, respiratory rate 20, and temperature 98.8. HEAD AND NECK: Pupils reactive to light. Extraocular muscles could not be tested. Oral cavity, dry mucous membranes. NECK: Supple, no jugular venous distention, no carotid bruit or lymph node. CHEST: Good respiratory movements. LUNGS: Showed few rhonchi. CARDIOVASCULAR: Regular rate and rhythm. No murmur or gallop. ABDOMEN: Firm. There were decreased bowel sounds. RECTAL EXAMINATION: Showed pasty stools in the upper rectum. EXTREMITIES: Lower extremities, no edema. CENTRAL NERVOUS SYSTEM: Unable to evaluate. LABORATORY DATA: White count is 19,500, H and H of 16.3 and 48.7, platelets are 180. Potassium 3, BUN and creatinine of 16 and 1, bilirubin was 1.5. Albumin is 3.7. Lactic acid is 2.77. CAT scan showed severe distal fecal impaction, inflammatory changes in the right lower quadrant, small amount of free fluid, also distention of the sigmoid colon, some small bowel thickening in the right lower quadrant and also complex renal cyst. IMPRESSION: A 61-year-old with fecal impaction, abdominal distention, and dehydration. ASSESSMENT AND PLAN: 1. Fecal impaction. We will start with mineral oil enema and then mineral oil through the NG tube. I tried manual disimpaction, it did not work. Then further recommendations to follow, but we need to watch for ischemic bowel. 2. Lethargy this most likely due to dehydration and fecal impaction, so we will start rehydrating the patient, deal with disimpaction and watch for later. 3. Leukocytosis secondary to sepsis. Watch for ischemia or colitis. 4. Low potassium supplements. 5. Other medical problems, such as coronary artery disease, hypertension, psychosis, and dementia as per Dr. Baldwin. Thank you, Dr. Baldwin for allowing me to participate in the care of the patient. If you have any further questions, please let me know. JOB# [id number] MTDD
--- NOTE | 2017-04-18 08:11 | Diagnostic Imaging Report ---
Portable chest x-ray Time: 08 History: Congestive heart failure Allowing for portable technique the heart size is normal. No focal pulmonary parenchymal processes. No hilar or mediastinal abnormalities. NG tube passes stomach. There is evidence of significant distention of the small bowel loops under the diaphragm clinical correlation and examination of the abdomen is recommended Atelectatic change in left base appreciated. Impression: Left basilar atelectasis. NG tube in the stomach. Significant distention of bowel loops in the diaphragm.
[2017-04-18 08:21] LABS: BAND NEUTROPHILE 10 % (0-10); NEUTROPHILS 80 % (40-80); PLATELET ESTIMATE ADEQUATE (NORMAL); PLATELET MORPHOLOGY NORMAL (NORMAL); TOTAL CELLS COUNTED 100
--- NOTE | 2017-04-18 08:44 | Diagnostic Imaging Report ---
Exam: Portable upright exam of the chest HISTORY: Congestion. Findings: Portable upright examination of the chest at 2004 hours reviewed no prior studies available comparison. Bony thorax intact. The NG tube passes into the stomach. There is evidence for left basilar atelectasis. No acute pulmonic infiltrates or effusions are noted. Distention of the bowel loops under the diaphragm appreciated clinical correlation recommended. IMPRESSION: No acute disease, left basilar atelectasis. NG tube in the stomach. Distention of bowel loops on the left from clinical correlation and the KUB of the abdomen might be helpful.
[2017-04-18] MEDS ORDERED: Diltiazem 5 mg/mL 5mL Vial IVP ONE ×2 (09:25→09:48)
[2017-04-18] MEDS ORDERED: Metoprolol tartrate 1 mg/ml 5mL Amp IV ONE ×2 (09:48→18:39)
[2017-04-18] MEDS: Lactobacillus Rhamnosus 10 Billion CFU Capsule PO SCH (09:50)
--- NOTE | 2017-04-18 10:18 | ED Physician Chart ---
ED Chief Complaint/HPI - Patient Information Date Seen:: 04/18/17 Time Seen:: 10:13 Chief Complaint:: tachycardia History of Present Illness:: 61-year-old male, ICU patient, with acute, constant, severe, tachycardia that started about 10 minutes prior to my arrival. This is in the setting of patient being in the ICU with altered mental status and sepsis, pneumonia, patient has inability to communicate due to his clinical condition. History limited by patient's clinical condition History provided by nursing staff Allergies:: Allergies Allergy/AdvReac Type Severity Reaction Status Date / Time tetracycline AdvReac Verified 04/15/17 17:56 Historian:: Other Review:: Nurse's Note Reviewed, Old Chart Reviewed ED Review of Systems - Review of Systems Other: Unable to obtain complete review of systems due to patient's clinical condition ED Past Medical History - Past Medical History Past Medical History: Dementia, Other Family History: None Social History: Non Smoker, No Alcohol (previous alcohol abuse), No Drug Use Surgical History: other Psychiatricy History: None Medication: Reviewed Family Medical History - Family Member Father History Unknown: Yes ED Physical Exam - Physical Examination Other:: INITIAL VITAL SIGNS: Reviewed by me GENERAL: Patient is lying in ICU bed with nonrebreather mask on. His eyes are open but he does not communicate. HEAD: Head is normocephalic. No evidence of trauma. No scalp or facial swelling EYES: No scleral icterus bilaterally ENT: Oropharynx is clear of exudate and erythema NECK: Supple. No meningismus. No masses. No evidence of trauma. No cervical spine bony step-offs or crepitus to palpation RESPIRATORY: No tachypnea. Coarse breath sounds bilaterally. CV: Rapid and irregular. No murmurs, rubs, or gallops ABDOMEN: Soft, slightly distended. No masses BACK: No ecchymoses. No evidence of trauma EXTREMITIES: Normal to inspection and palpation. No deformity SKIN: Warm and dry. No obvious rash. No jaundice NEUROLOGIC: Face is symmetric. Withdraws to pain in all extremities ED Labs/Radiology/EKG Results - Lab Results Results: Laboratory Tests 04/15/17 04/15/17 04/15/17 18:19 18:19 18:19 WBC 20.0 H D RBC 5.17 Hgb 15.2 D Hct 45.6 D MCV 88.2 MCH 29.4 MCHC Differential 33.3 RDW 13.8 Plt Count 180 D MPV 8.4 Band Neutrophils % 10 Neutrophils (Manual) 81 H Lymphocytes 5 L Monocytes 4 Eosinophils 0 Basophils 0 Platelet Estimate ADEQUATE Platelet Morphology NORMAL RBC Morph Micro Appear NORMAL Sodium 136 Potassium 4.1 Chloride 105 Carbon Dioxide 21.8 Anion Gap 13.3 BUN 15 Creatinine 0.9 Est GFR ( Amer) > 60.0 Est GFR (Non-Af Amer) > 60.0 BUN/Creatinine Ratio 16.7 Glucose 172 H Whole Bld Lactic Acid Calcium 9.8 Total Bilirubin 0.8 AST 9 L ALT 7 Alkaline Phosphatase 89 Troponin I 0.01 Total Protein 7.3 Albumin 4.4 Globulin 2.9 Albumin/Globulin Ratio 1.5 Urine Source Urine Color Urine Clarity Urine pH Ur Specific [place] Urine Protein Urine Glucose (UA) Urine Ketones Urine Blood Urine Nitrate Urine Bilirubin Urine Urobilinogen Ur Leukocyte Esterase Urine RBC Urine WBC Ur Epithelial Cells Urine Bacteria Urine Opiates Screen Urine Methadone Screen Ur Barbiturates Screen Ur Tricyclics Screen Ur Phencyclidine Scrn Amphetamines Screen U Methamphetamines Scrn U Benzodiazepines Scrn U Cocaine Metab Screen U Cannabinoids Screen 04/15/17 04/15/17 04/15/17 18:19 19:30 19:30 WBC RBC Hgb Hct MCV MCH MCHC Differential RDW Plt Count MPV Band Neutrophils % Neutrophils (Manual) Lymphocytes Monocytes Eosinophils Basophils Platelet Estimate Platelet Morphology RBC Morph Micro Appear Sodium Potassium Chloride Carbon Dioxide Anion Gap BUN Creatinine Est GFR ( Amer) Est GFR (Non-Af Amer) BUN/Creatinine Ratio Glucose Whole Bld Lactic Acid 2.93 H* Calcium Total Bilirubin AST ALT Alkaline Phosphatase Troponin I Total Protein Albumin Globulin Albumin/Globulin Ratio Urine Source RANDOM Urine Color YELLOW Urine Clarity CLEAR Urine pH 6.0 Ur Specific [place] 1.020 Urine Protein TRACE Urine Glucose (UA) NEGATIVE Urine Ketones NEGATIVE Urine Blood NEGATIVE Urine Nitrate NEGATIVE Urine Bilirubin NEGATIVE Urine Urobilinogen 0.2 Ur Leukocyte Esterase NEGATIVE Urine RBC NONE SEEN Urine WBC NONE SEEN Ur Epithelial Cells NONE SEEN Urine Bacteria NONE SEEN Urine Opiates Screen NEGATIVE Urine Methadone Screen NEGATIVE Ur Barbiturates Screen NEGATIVE Ur Tricyclics Screen NEGATIVE Ur Phencyclidine Scrn NEGATIVE Amphetamines Screen NEGATIVE U Methamphetamines Scrn NEGATIVE U Benzodiazepines Scrn NEGATIVE U Cocaine Metab Screen NEGATIVE U Cannabinoids Screen NEGATIVE 04/15/17 20:21 WBC RBC Hgb Hct MCV MCH MCHC Differential RDW Plt Count MPV Band Neutrophils % Neutrophils (Manual) Lymphocytes Monocytes Eosinophils Basophils Platelet Estimate Platelet Morphology RBC Morph Micro Appear Sodium Potassium Chloride Carbon Dioxide Anion Gap BUN Creatinine Est GFR ( Amer) Est GFR (Non-Af Amer) BUN/Creatinine Ratio Glucose Whole Bld Lactic Acid 3.51 H* Calcium Total Bilirubin AST ALT Alkaline Phosphatase Troponin I Total Protein Albumin Globulin Albumin/Globulin Ratio Urine Source Urine Color Urine Clarity Urine pH Ur Specific [place] Urine Protein Urine Glucose (UA) Urine Ketones Urine Blood Urine Nitrate Urine Bilirubin Urine Urobilinogen Ur Leukocyte Esterase Urine RBC Urine WBC Ur Epithelial Cells Urine Bacteria Urine Opiates Screen Urine Methadone Screen Ur Barbiturates Screen Ur Tricyclics Screen Ur Phencyclidine Scrn Amphetamines Screen U Methamphetamines Scrn U Benzodiazepines Scrn U Cocaine Metab Screen U Cannabinoids Screen - EKG Interpretations Comments:: 12-lead EKG Interpretation by Gloria Michael MD: Atrial fibrillation with rapid ventricular rate of 179 beats per minute Normal axis Normal intervals No acute ST or T wave changes. No obvious STEMI ED Assessment - Assessment Critical Care Time: 35 Excludes all billable procedures: Yes This condition life threatening/high prob of deterioration: Yes Assessment/Comments:: Critical Care Time: 35 minutes Treatments/Evaluations: Close monitoring and treatment of unstable vital signs, cardiorespiratory, and neurologic status, while maintaining tight balance of fluid, respiratory, and cardiac interventions. This time includes discussing the case with the patient and the patient's family. This time does not include all procedures stated elsewhere in this record. This time also includes reviewing old records, labs and radiological studies. This time includes examining and re-examining the patient. Additionally, this time also includes arranging care with admitting and consulting physicians. ED Septic Shock - . Is Septic Shock (SBP<90, OR Lactate>4 mmol\L) present?: No ED Reassessment (Disposition) - Reassessment Reassessment:: When I arrived on scene the patient was in A. fib with rapid ventricular response. Rate of 179. EKG confirmed A. fib RVR. Blood pressure was good. However serial blood pressure checks indicated dropping blood pressure. Initially I was prepared to use a push dose pressor of phenylephrine. However this was unnecessary as the heart rate improved the blood pressure improved as well. Initially we gave patient a bolus of 20 mg of diltiazem. There was very little response to the medication. Heart rate remained rapid. Blood pressure was worsening. At this point we administered 5 mg of IV metoprolol over 2 minutes. The heart rate responded well and the blood pressure improved significantly. I was prepared to use the push dose pressor of phenylephrine however this was unnecessary. We also administered 1 L of normal saline early on in the course. Family was at bedside. I explained all of the process to them. The patient is a modified code. He is currently on a nonrebreather at 100% FiO2. Good saturations however coarse breath sounds bilaterally. Patient is apparently being treated for sepsis, pneumonia. After the good response to the metoprolol, I instructed nursing to contact the hospital physician to request orders for serial IV metoprolol. Patient was monitored for some time. He remained stable. Reassessment Condition:: Improved - Diagnosis Diagnosis:: Atrial fibrillation with rapid ventricular response - Patient Disposition Discharge/Transfer:: Acute Care w/in this hosp Time:: 10:33 ED Discharge Plan - Patient Disposition Admit/Discharge/Transfer: Acute Care w/in this hosp
[2017-04-18] MEDS ORDERED: KCL 20mEq/100mL Premix 20 MEQ/100 ML PIGGYBACK IV ONE (11:22)
[2017-04-18] MEDS ORDERED: Sodium Chloride 0.9% 500 ML IV ONE (11:23)
[2017-04-18] MEDS: D5-0.9%NS 1,000 ML IV SCH (11:30)
[2017-04-18] MEDS ORDERED: Diltiazem 5 mg/mL 5mL Vial IVP STA (18:39)
[2017-04-19 05:51] LABS: HEMATOCRIT 49.9 % (39.0-49.0); HEMOGLOBIN 16.7 gm/dL (13.2-17.3); MEAN CELL VOLUME 87.9 fl (80-99); MEAN CORPUSCULAR HEMOGLOBIN 29.5 pg (26.0-30.0); MEAN CORPUSCULAR HGB CONC 33.5 pg (28.0-36.0); MEAN PLATELET VOLUME 9.4 fl; RED BLOOD COUNT 5.67 Mil/cmm (4.30-5.70); RED CELL DISTRIBUTION WIDTH 14.1 % (11.5-20.0)
[2017-04-19 06:03] LABS: ALKALINE PHOSPHATASE 53 U/L (34-104); ANION GAP 10.7 (7.0-16.0); BILIRUBIN,TOTAL 0.9 mg/dL (0.3-1.0); BUN - UREA NITROGEN 27 mg/dL (7-25); BUN/CREATININE RATIO 24.5; CALCIUM SERUM 9.5 mg/dL (8.6-10.3); CARBON DIOXIDE 28.3 mEq/L (21.0-31.0); CHLORIDE 104 mEq/L (98-107); CHOLESTEROL 173 mg/dL (<200); CREATININE - SERUM 1.1 mg/dL (0.7-1.3); GLUCOSE 165 mg/dL (70-105); SGOT 7 U/L (13-39); SGPT/ALT 7 U/L (7-52); SODIUM SERUM 140 mEq/L (136-145); TRIGLYCERIDES 208 mg/dL (<150)
[2017-04-19 06:11] LABS: INR 1.01 (0.5-1.4); PROTHROMBIN TIME (TEST) 10.5 SECONDS (9.5-11.5)
[2017-04-19 06:23] LABS: PLATELET COUNT 218 Th/cmm (150-400); WHITE BLOOD COUNT 16.5 Th/cmm (4.8-10.8)
--- NOTE | 2017-04-19 07:54 | History & Physical ---
ADMIT DATE: 04/16/2017 HISTORY OF PRESENT ILLNESS: This 61-year-old male was seen and examined at the courtesy of Dr. Baldwin. The patient is in ICU. The patient was admitted here. He has been having multiple problems. He was noticed to have atrial fibrillation with rapid ventricular response. He is in and out of that, but whenever he goes into atrial fibrillation he goes with a very fast heart rate. He also has acute respiratory failure and bilateral pneumonia, sepsis, renal failure, dementia. No other history available from the patient. Information is obtained from the chart. LABORATORY DATA: On reviewing the labs and x-rays, chest x-ray revealed atelectic changes in left base, NG tube in the stomach, significant distention of the bowel loops. CT of the chest shows bilateral effusions and bibasilar opacity, atelectic consolidation changes, pneumonia of the lung bases cannot be excluded; tiny right-sided pleural base nodular opacities may be due to prior infections or inflammatory process; small bilateral hernia with gastroesophageal reflux. CT of the abdomen and pelvis, fecal impaction, inflammatory changes along the mesentery and the right lower quadrant with a small amount of free fluid, noted few air-fluid levels small bowel looks; inflammatory changes are most pronounced in the right lower quadrant, a small area of small bowel wall thickening, inflammatory process and partial low grade obstructive changes of the distal small bowel and on the right lower quadrant cannot be excluded; large right renal cyst with calcification probably complex cyst as seen on the previous CT. Sodium was 139, potassium 3.3, chloride 103, CO2 28.9, BUN 28, creatinine 1.5. Glucose was 157. WBC count was 15.3, hemoglobin is 16, hematocrit 47.6, platelet count 177. BNP was 69.1. Lactic acid was 2.77. On the previous CBC examination, he has bandemia of 6, WBC count was 17.8. Troponin was 0.01. PAST MEDICAL HISTORY, SOCIAL HISTORY, FAMILY HISTORY, REVIEW OF SYSTEMS: Not much available from the patient. PHYSICAL EXAMINATION: VITAL SIGNS: Heart rate right now was 110, blood pressure was 92/56. SKIN: Normal. HEAD: Normocephalic. EYES: Conjunctivae were pink. There is no icterus in the eyes. Pupils reacting to light. NECK: There was no increased jugular vein distention, no thyromegaly, no lymphadenopathy. Carotids equal on both sides. CHEST: Bilaterally symmetrical, moved well by respiration. Respiratory movements equal both sides. Trachea is central. There is note to percussion. Breath sound bilateral rales and rhonchi. CARDIOVASCULAR SYSTEM: PMI not well localized and no positional thrill. No parasternal heave, S1 normal, S2 physiologic. There was no S3, no rub. ABDOMEN: Soft and distended. Bowel sounds were present. EXTREMITIES: No edema, no calf tenderness. Peripheral pulses diminished. IMPRESSION: 1. Atrial fibrillation with rapid ventricular response, probably paroxysmal. I am not sure whether it is acute or chronic atrial fibrillation; if it is acute, we will have to rule out myocardial ____ injury. I will get serial EKGs, serial troponin levels. 2. Acute respiratory failure, bilateral pneumonia. 3. Renal failure. 4. Sepsis. 5. Dementia. PLAN: I discussed in detail with the RN. We will repeat EKG in the a.m., we will also get echocardiogram to evaluate left ventricular function and valvular structure and also get lipid profile in the a.m.; repeat BMP, thyroid profile. We will control the heart rate with Cardizem IV, order has been written for that. He is already on Lopressor. Continue IV anticoagulation. JOB# [id number]
[2017-04-19] MEDS: D5-0.9%NS 1,000 ML IV SCH (09:38)
[2017-04-19] MEDS: Lactobacillus Rhamnosus 10 Billion CFU Capsule PO SCH (09:38)
[2017-04-19 10:00] LABS: BAND NEUTROPHILE 9 % (0-10); NEUTROPHILS 76 % (40-80); TOTAL CELLS COUNTED 100
[2017-04-19 10:01] LABS: PLATELET ESTIMATE ADEQUATE (NORMAL); PLATELET MORPHOLOGY NORMAL (NORMAL)
--- NOTE | 2017-04-19 10:10 | Diagnostic Imaging Report ---
Exam: Chest x-ray portable one view HISTORY: Pneumonia. Findings: Portable examination of the chest at 0813 hours reviewed. The study demonstrates NG tube passes stomach. There is evidence of for mild congestion. The costophrenic angles are clear bony thorax is intact. Mediastinal structures midline. Fatty change in left base appreciated Distention of the small and large bowel loops appreciated throughout the abdomen. Clinical correlation KUB of the abdomen might be helpful. IMPRESSION: Mild congestion, no acute infiltrates Left basilar atelectasis Significant distention of bowel loops under the diaphragm.
[2017-04-19] MEDS: Lactulose 10 Gm/15 mL 30mL UDC PO SCH ×2 (11:42→17:07)
--- NOTE | 2017-04-19 16:01 | Infectious Disease Prog Note ---
Infectious Disease Subjective - Review of Systems Service Date: 04/19/17 Events since last encounter: Nonsignificant. Subjective: No change. No fever. Congestion has improved Infectious Disease Objective - Results Result Diagrams: 04/20/17 04:10 04/20/17 04:10 Recent Labs: Laboratory Last Values WBC 16.5 Th/cmm (4.8-10.8) H 04/19/17 04:46 RBC 5.67 Mil/cmm (4.30-5.70) 04/19/17 04:46 Hgb 16.7 gm/dL (13.2-17.3) 04/19/17 04:46 Hct 49.9 % (39.0-49.0) H 04/19/17 04:46 MCV 87.9 fl (80-99) 04/19/17 04:46 MCH 29.5 pg (26.0-30.0) 04/19/17 04:46 MCHC Differential 33.5 pg (28.0-36.0) 04/19/17 04:46 RDW 14.1 % (11.5-20.0) 04/19/17 04:46 Plt Count 218 Th/cmm (150-400) D 04/19/17 04:46 MPV 9.4 fl 04/19/17 04:46 Neutrophils % [employer]INGER 04/16/17 04:42 Band Neutrophils % 9 % (0-10) 04/19/17 04:46 Lymphocytes % [place] 04/16/17 04:42 Monocytes % [place] 04/16/17 04:42 Eosinophils % [place] 04/16/17 04:42 Basophils % [place] 04/16/17 04:42 Neutrophils (Manual) 76 % (40-80) 04/19/17 04:46 Lymphocytes 10 % (20-50) L 04/19/17 04:46 Monocytes 5 % (2-10) 04/19/17 04:46 Eosinophils 0 % (0-5) 04/15/17 18:19 Basophils 0 % (0-3) 04/15/17 18:19 Platelet Estimate ADEQUATE (NORMAL) 04/19/17 04:46 Platelet Morphology NORMAL (NORMAL) 04/19/17 04:46 RBC Morph Micro Appear NORMAL (NORMAL) 04/19/17 04:46 PT 10.5 SECONDS (9.5-11.5) 04/19/17 04:46 INR 1.01 (0.5-1.4) 04/19/17 04:46 Sodium 140 mEq/L (136-145) 04/19/17 04:46 Potassium 3.0 mEq/L (3.5-5.1) L 04/19/17 04:46 Chloride 104 mEq/L (98-107) 04/19/17 04:46 Carbon Dioxide 28.3 mEq/L (21.0-31.0) 04/19/17 04:46 Anion Gap 10.7 (7.0-16.0) 04/19/17 04:46 BUN 27 mg/dL (7-25) H 04/19/17 04:46 Creatinine 1.1 mg/dL (0.7-1.3) 04/19/17 04:46 Est GFR ( Amer) > 60.0 ml/min (>90) 04/19/17 04:46 Est GFR (Non-Af Amer) > 60.0 ml/min 04/19/17 04:46 BUN/Creatinine Ratio 24.5 04/19/17 04:46 Glucose 165 mg/dL (70-105) H 04/19/17 04:46 Whole Bld Lactic Acid 2.77 mmol/L (0.60-1.99) H* 04/16/17 07:01 Calcium 9.5 mg/dL (8.6-10.3) 04/19/17 04:46 Total Bilirubin 0.9 mg/dL (0.3-1.0) 04/19/17 04:46 AST 7 U/L (13-39) L 04/19/17 04:46 ALT 7 U/L (7-52) 04/19/17 04:46 Alkaline Phosphatase 53 U/L (34-104) 04/19/17 04:46 Troponin I 0.01 ng/mL (0.01-0.05) 04/19/17 12:45 B-Natriuretic Peptide 69.1 pg/mL (5.0-100.0) 04/18/17 04:40 Total Protein 7.1 gm/dL (6.0-8.3) 04/19/17 04:46 Albumin 3.6 gm/dL (4.2-5.5) L 04/19/17 04:46 Globulin 3.5 gm/dL 04/19/17 04:46 Albumin/Globulin Ratio 1.0 (1.0-1.8) 04/19/17 04:46 Triglycerides 208 mg/dL (<150) H 04/19/17 04:46 Cholesterol 173 mg/dL (<200) 04/19/17 04:46 LDL Cholesterol Direct 128 mg/dL (75-193) 04/19/17 04:46 HDL Cholesterol 33 mg/dL (23-92) 04/19/17 04:46 TSH 2.58 uIU/ml (0.34-5.60) 04/19/17 04:46 Urine Source RANDOM 04/15/17 19:30 Urine Color YELLOW 04/15/17 19:30 Urine Clarity CLEAR (CLEAR) 04/15/17 19:30 Urine pH 6.0 (4.6 - 8.0) 04/15/17 19:30 Ur Specific [place] 1.020 (1.005-1.030) 04/15/17 19:30 Urine Protein TRACE mg/dL (NEGATIVE) 04/15/17 19:30 Urine Glucose (UA) NEGATIVE mg/dL (NEGATIVE) 04/15/17 19:30 Urine Ketones NEGATIVE mg/dL (NEGATIVE) 04/15/17 19:30 Urine Blood NEGATIVE (NEGATIVE) 04/15/17 19:30 Urine Nitrate NEGATIVE (NEGATIVE) 04/15/17 19:30 Urine Bilirubin NEGATIVE (NEGATIVE) 04/15/17 19:30 Urine Urobilinogen 0.2 E.U./dL (0.2 - 1.0) 04/15/17 19:30 Ur Leukocyte Esterase NEGATIVE (NEGATIVE) 04/15/17 19:30 Urine RBC NONE SEEN /hpf (0-5) 04/15/17 19:30 Urine WBC NONE SEEN /hpf (0-5) 04/15/17 19:30 Ur Epithelial Cells NONE SEEN /lpf (FEW) 04/15/17 19:30 Urine Bacteria NONE SEEN /hpf (NONE SEEN) 04/15/17 19:30 Vancomycin Trough 3.5 ug/mL (10-20) L 04/19/17 09:00 Urine Opiates Screen NEGATIVE (NEGATIVE) 04/15/17 19:30 Urine Methadone Screen NEGATIVE (NEGATIVE) 04/15/17 19:30 Ur Barbiturates Screen NEGATIVE (NEGATIVE) 04/15/17 19:30 Ur Tricyclics Screen NEGATIVE (NEGATIVE) 04/15/17 19:30 Ur Phencyclidine Scrn NEGATIVE (NEGATIVE) 04/15/17 19:30 Amphetamines Screen NEGATIVE (NEGATIVE) 04/15/17 19:30 U Methamphetamines Scrn NEGATIVE (NEGATIVE) 04/15/17 19:30 U Benzodiazepines Scrn NEGATIVE (NEGATIVE) 04/15/17 19:30 U Cocaine Metab Screen NEGATIVE (NEGATIVE) 04/15/17 19:30 U Cannabinoids Screen NEGATIVE (NEGATIVE) 04/15/17 19:30 - Physical Exam Vitals and I&O: Vital Signs Temp 98.2 F 04/19/17 15:00 Pulse 100 04/19/17 15:00 Resp 16 04/19/17 15:00 BP 131/85 04/19/17 15:00 Pulse Ox 97 04/19/17 15:00 Intake & Output 04/18/17 04/19/17 04/19/17 18:59 06:59 18:59 Intake Total 908.75 1145 75 Output Total 1800 500 Balance -891.25 645 75 Weight (lbs) 75.438 kg 74.843 kg Intake: Intake, IV Amount 108.75 1025 75 D5-0.9%Ns 1,000 ml @ 50 925 75 mls/hr IV .Q20H [facility] Rx#: [id number] Diltiazem 125 mg In 8.75 Dextrose 5% 100 ml @ 5 MG /HR 5 mls/hr IV TITR [facility] Rx#:[id number] Piperacillin Sodium/ 100 100 Tazobact 3.375 gm In Sodium Chloride 0.9% 50 ml @ 100 mls/hr IV Q6HR [facility] Rx#:[id number] Other 800 120 Output: Gastric Drainage 1400 50 Urine 400 450 Other: # Bowel Movements 1 0 Stool Characteristics Liquid Brown Active Medications: Current Medications Acetaminophen (Tylenol) 650 mg PO Q4H PRN PRN Reason: Pain Stop: 06/15/17 08:47 Last Admin: 04/18/17 02:21 Dose: 650 mg Clonazepam (Klonopin) 0.5 mg PO Q6HR PRN; Protocol PRN Reason: Nasal Congestion Stop: 06/15/17 11:59 Last Admin: 04/18/17 02:22 Dose: 0.5 mg Diltiazem HCl (Cardizem) 5 mg IVP Q4H PRN PRN Reason: HR>130 Stop: 06/18/17 04:44 Docusate Sodium (Colace) 100 mg PO BID [facility] Stop: 06/15/17 08:59 Last Admin: 04/19/17 09:38 Dose: 100 mg Heparin Sodium (Porcine) (Heparin) 5,000 units SUBQ Q12HR [facility] Stop: 06/15/17 20:59 Last Admin: 04/19/17 09:37 Dose: 5,000 units Piperacillin Sod/Tazobactam (Sod 3.375 gm/ Sodium Chloride) 50 mls @ 100 mls/ hr IV Q6HR [facility] Stop: 06/15/17 00:00 Last Admin: 04/19/17 11:10 Dose: 100 mls/hr Diltiazem HCl 125 mg/ Dextrose 125 mls @ 5 mls/hr IV TITR [facility]; 5 MG/HR PRN Reason: Protocol Stop: 06/17/17 04:54 Last Titration: 04/18/17 08:00 Dose: 10 mg/hr, 10 mls/hr Dextrose/Sodium Chloride (D5-0.9%Ns) 1,000 mls @ 50 mls/hr IV .Q20H [facility] Stop: 06/17/17 11:20 Last Admin: 04/19/17 09:38 Dose: 50 mls/hr Norepinephrine Bitartrate 4 mg (/ Dextrose) 254 mls @ 0 mls/hr IV PRN PRN; Protocol; Per Protocol PRN Reason: BP MAINTENANCE (PER PROTOCOL) Stop: 06/18/17 07:23 Potassium Chloride 30 meq/ (Sodium Chloride) 265 mls @ 88.333 mls/hr IV 1130 [facility] Stop: 04/19/17 16:00 Last Admin: 04/19/17 11:41 Dose: 88.333 mls/hr Lactobacillus Rhamnosus (Culturelle) 1 each PO DAILY [facility] Stop: 06/17/17 08:59 Last Admin: 04/19/17 09:38 Dose: 1 each Lactulose (Cephulac) 30 gm PO Q6HR [facility] Stop: 06/18/17 11:59 Last Admin: 04/19/17 11:42 Dose: 30 gm Magnesium Hydroxide (Milk Of Magnesia) 30 ml PO HS PRN PRN Reason: Constipation Stop: 06/15/17 08:47 Last Admin: 04/18/17 02:21 Dose: 30 ml Memantine (Namenda) 5 mg PO BID [facility] Stop: 06/15/17 08:59 Last Admin: 04/19/17 09:38 Dose: 5 mg Mineral Oil (Mineral Oil 30 Ml) 30 ml NG QID [facility] Stop: 06/16/17 17:14 Last Admin: 04/19/17 12:18 Dose: 30 ml Miscellaneous (Vte Chemical Prophylaxis Screen/ Admission) 1 ea [facility] PRN PRN PRN Reason: PROTOCOL Stop: 06/15/17 10:14 Miscellaneous (Probiotic Screen) 1 ea [facility] PRN PRN PRN Reason: PROTOCOL Stop: 06/16/17 16:59 Pantoprazole Sodium (Protonix) 40 mg IVP DAILY [facility] Stop: 06/17/17 13:29 Last Admin: 04/19/17 09:37 Dose: 40 mg General: no acute distress, well developed, well nourished HEENT: atraumatic, normocephalic, PERRLA, EOMI, moist mucous membrane Neck: no supple, no thyromegaly, no lymphadenopathy, no rigid Cardiovascular: S1S2, regular, systolic murmur Lungs: clear to auscultation bilaterally, clear to percussion Abdomen: soft, bowel sounds, no tender, no distended, no hepatomegaly Extremities: no cyanosis, no clubbing, no edema Neurological: awake, other (aphasic. Open his eyes.) Skin: intact Infectious Disease Assmt/Plan - Problem List Patient Problems: All Active Problems Depression (Acute) F32.9 INCREASED AGITATION (Acute 03/10/14) Mental health problem (Acute) F48.9 Psychosis (Acute) F29 - Assessment Assessment: 1. Sepsis, lactic acidosis improving. 2. dementia. 3. Fecal impaction. 4. CHF. - Plan Plan: Continue zosyn. Nutritional Asmnt/Malnutr-PDOC - Dietary Evaluation Malnutrition Findings (Please click <Entered> for more info): Nutritional Asmnt/Malnutrition Start: 04/17/17 15: 06 Text: Status: Complete Freq: Document 04/17/17 15:06 GSUN (Rec: 04/17/17 15:26 [id number]) Nutritional Asmnt/Malnutrition Patient General Information Nutritional Screening High Risk Screening Diagnosis Recurrent GI problem, sepsis protocol Pertinent Medical Hx/Surgical Hx Dementia, psychotic disorder, dysphagia, osteoarthritis, DJD , HTN, CAD, bed bound condition Subjective Information 61 year old male from [facility]. 04/16 CT abdomen: severe distal fecal impaction, renal cyst. Spoke to RN, RN stated last BM on 04/12, pt is currently NPO with ngt to low intermittent suctioning out greenish liquid , abdomen is tender. Spoke to family at bedside, confirmed usual diet and pt's preferences. Limited physical assessment, pt appeared overall thin. Current Diet Order/ Nutrition Support NPO Pertinent Medications D5-0.45ns, Colace, MOM, Vancomycin Pertinent Labs 04/17: glucose 178H Nutritional Hx/Data Height 1.88 m Height (Calculated Centimeters) 188.0 Current Weight (lbs) 74.707 kg Weight (Calculated Kilograms) 74.7 Weight (Calculated Grams) 28571.7 [place] Body Weight 190 Weight Status Approriate GI Symptoms Cultural/Ethnic/Voodoo Belief Dislike fish. Usual diet at home [facility]: puree, ANTHONY, 4oz HPN between meals Skin Integrity/Comment: Ros[place] 14. SKin intact. Estimated Nutritional Goals BEE in Kcals: Using Current wt Calories/Kcals/Kg CBW 164.7lb/74.9kg Kcals Calculated 1873-2247kcal (25-30kcal/kg) Protein: Using Current wt Protein Calculated 75g (1g/kg) Fluid: ml 1873-2247ml (1ml/kcal) Nutritional Problem 1. Problem Problem Altered GI function related to Etiology bowel movement, renal aeb Signs/Symptoms: CT severe distal fecal impaction, renal cyst Intervention/Recommendation Comments 1. When medically appropriate to reusme diet, recommend pureed diet with prune juice every meal or as needed. Expected Outcomes/Goals Expected Outcomes/Goals 1. PO intake to resume and meet at least 75% of estimated nutritional needs.
[2017-04-19] MEDS ORDERED: MINERAL OIL ENEMA 135 ML BOTTLE RC ONE (16:13)
[2017-04-19] MEDS ORDERED: Fleet Enema 135 mL RC ONE (19:26)
[2017-04-20] MEDS: Lactulose 10 Gm/15 mL 30mL UDC PO SCH ×4 (02:30→17:09)
[2017-04-20 05:02] LABS: HEMOGLOBIN 16.9 gm/dL (13.2-17.3)
[2017-04-20 05:12] LABS: HEMATOCRIT 50.4 % (39.0-49.0); MEAN CELL VOLUME 87.6 fl (80-99); MEAN CORPUSCULAR HEMOGLOBIN 29.4 pg (26.0-30.0); MEAN CORPUSCULAR HGB CONC 33.5 pg (28.0-36.0); MEAN PLATELET VOLUME 9.2 fl; PLATELET COUNT 227 Th/cmm (150-400); RED BLOOD COUNT 5.76 Mil/cmm (4.30-5.70); RED CELL DISTRIBUTION WIDTH 13.9 % (11.5-20.0)
[2017-04-20 05:24] LABS: WHITE BLOOD COUNT 15.1 Th/cmm (4.8-10.8)
[2017-04-20 05:35] LABS: ALB/GLOB RATIO 1.1 (1.0-1.8); ALKALINE PHOSPHATASE 59 U/L (34-104); ANION GAP 12.1 (7.0-16.0); BILIRUBIN,TOTAL 1.1 mg/dL (0.3-1.0); BUN - UREA NITROGEN 22 mg/dL (7-25); CALCIUM SERUM 9.8 mg/dL (8.6-10.3); CARBON DIOXIDE 27.9 mEq/L (21.0-31.0); CHLORIDE 109 mEq/L (98-107); GLUCOSE 170 mg/dL (70-105); SGOT 9 U/L (13-39); SGPT/ALT 9 U/L (7-52); SODIUM SERUM 146 mEq/L (136-145)
[2017-04-20 06:11] LABS: BAND NEUTROPHILE 8 % (0-10); NEUTROPHILS 80 % (40-80); PLATELET ESTIMATE ADEQUATE (NORMAL); TOTAL CELLS COUNTED 100; TOXIC GRANULATION 1+
[2017-04-20] MEDS: Diltiazem 5 mg/mL 5mL Vial IVP PRN ×2 (07:05→14:12)
[2017-04-20] MEDS: Lactobacillus Rhamnosus 10 Billion CFU Capsule PO SCH (08:42)
[2017-04-20] MEDS: MINERAL OIL ENEMA 135 ML BOTTLE RC ONE ×2 (09:16→09:17)
[2017-04-20] MEDS: D5-0.45NS w/20 mEq KCL 1,000 ML IV SCH ×2 (09:20→17:44)
[2017-04-20] MEDS ORDERED: Potassium Chloride 40 MEQ, Lidocaine 1% 20mL Vial 25 MG in Sodium Chloride 0.9% 250 ML IV ONE (09:30)
[2017-04-20] MEDS: Diltiazem 30 mg Tab PO SCH ×3 (12:16→23:43)
--- NOTE | 2017-04-20 13:03 | Cardiology ---
04/19/[address] Baldwin M-MODE ECHOCARDIOGRAM: Mitral valve, anterior leaflets of mitral valve shows normal excursion, EF velocity. Posterior leaflet of the mitral valve shows normal excursion. Left ventricular posterior wall shows increased thickness, normal excursion. Interventricular septum shows increased thickness, normal excursion, hypertrophy of the left ventricle, ejection fraction 65%. Left atrium normal. Aortic root shows normal dimension, normal excursion of aortic leaflets. CONCLUSION: Minimal hypertrophy of the left ventricle, ejection fraction 65%. 2D ECHO: Long axis view showed normal sized left ventricle with minimal hypertrophy of the left ventricle. Left atrium normal. Aortic root shows normal dimension, normal excursion of aortic leaflets. Short axis view of mitral valve normal. Short axis view of aortic valve normal. Apical four chamber view showed normal sized left ventricle with hypertrophy of the left ventricle. Left atrium normal. Right ventricular cavity, right atrium normal, no pericardial effusion. CONCLUSION: Hypertrophy of the left ventricle, ejection fraction 65%. Doppler study shows trace mitral regurgitation, trace tricuspid regurgitation. [facility]# [id number]
--- NOTE | 2017-04-20 16:40 | Infectious Disease Prog Note ---
Infectious Disease Subjective - Review of Systems Service Date: 04/20/17 Subjective: No change. No fever. Congestion has improved Infectious Disease Objective - Results Result Diagrams: 04/20/17 04:10 04/20/17 04:10 Recent Labs: Laboratory Last Values WBC 15.1 Th/cmm (4.8-10.8) H 04/20/17 04:10 RBC 5.76 Mil/cmm (4.30-5.70) H 04/20/17 04:10 Hgb 16.9 gm/dL (13.2-17.3) 04/20/17 04:10 Hct 50.4 % (39.0-49.0) H 04/20/17 04:10 MCV 87.6 fl (80-99) 04/20/17 04:10 MCH 29.4 pg (26.0-30.0) 04/20/17 04:10 MCHC Differential 33.5 pg (28.0-36.0) 04/20/17 04:10 RDW 13.9 % (11.5-20.0) 04/20/17 04:10 Plt Count 227 Th/cmm (150-400) 04/20/17 04:10 MPV 9.2 fl 04/20/17 04:10 Neutrophils % ANIMAL CARETAKER 04/16/17 04:42 Band Neutrophils % 8 % (0-10) 04/20/17 04:10 Lymphocytes % ANIMAL CARETAKER 04/16/17 04:42 Monocytes % ANIMAL CARETAKER 04/16/17 04:42 Eosinophils % ANIMAL CARETAKER 04/16/17 04:42 Basophils % ANIMAL CARETAKER 04/16/17 04:42 Neutrophils (Manual) 80 % (40-80) 04/20/17 04:10 Lymphocytes 7 % (20-50) L 04/20/17 04:10 Monocytes 5 % (2-10) 04/20/17 04:10 Eosinophils 0 % (0-5) 04/15/17 18:19 Basophils 0 % (0-3) 04/15/17 18:19 Toxic Granulation 1+ 04/20/17 04:10 Platelet Estimate ADEQUATE (NORMAL) 04/20/17 04:10 Platelet Morphology NORMAL (NORMAL) 04/19/17 04:46 RBC Morph Micro Appear NORMAL (NORMAL) 04/19/17 04:46 PT 10.5 SECONDS (9.5-11.5) 04/19/17 04:46 INR 1.01 (0.5-1.4) 04/19/17 04:46 Sodium 146 mEq/L (136-145) H 04/20/17 04:10 Potassium 3.0 mEq/L (3.5-5.1) L 04/20/17 04:10 Chloride 109 mEq/L (98-107) H 04/20/17 04:10 Carbon Dioxide 27.9 mEq/L (21.0-31.0) 04/20/17 04:10 Anion Gap 12.1 (7.0-16.0) 04/20/17 04:10 BUN 22 mg/dL (7-25) 04/20/17 04:10 Creatinine 1.0 mg/dL (0.7-1.3) 04/20/17 04:10 Est GFR ( Amer) > 60.0 ml/min (>90) 04/20/17 04:10 Est GFR (Non-Af Amer) > 60.0 ml/min 04/20/17 04:10 BUN/Creatinine Ratio 22.0 04/20/17 04:10 Glucose 170 mg/dL (70-105) H 04/20/17 04:10 Whole Bld Lactic Acid 1.46 mmol/L (0.60-1.99) 04/20/17 04:10 Calcium 9.8 mg/dL (8.6-10.3) 04/20/17 04:10 Total Bilirubin 1.1 mg/dL (0.3-1.0) H 04/20/17 04:10 AST 9 U/L (13-39) L 04/20/17 04:10 ALT 9 U/L (7-52) 04/20/17 04:10 Alkaline Phosphatase 59 U/L (34-104) 04/20/17 04:10 Troponin I 0.01 ng/mL (0.01-0.05) 04/19/17 20:52 B-Natriuretic Peptide 69.1 pg/mL (5.0-100.0) 04/18/17 04:40 Total Protein 7.3 gm/dL (6.0-8.3) 04/20/17 04:10 Albumin 3.8 gm/dL (4.2-5.5) L 04/20/17 04:10 Globulin 3.5 gm/dL 04/20/17 04:10 Albumin/Globulin Ratio 1.1 (1.0-1.8) 04/20/17 04:10 Triglycerides 208 mg/dL (<150) H 04/19/17 04:46 Cholesterol 173 mg/dL (<200) 04/19/17 04:46 LDL Cholesterol Direct 128 mg/dL (75-193) 04/19/17 04:46 HDL Cholesterol 33 mg/dL (23-92) 04/19/17 04:46 TSH 2.58 uIU/ml (0.34-5.60) 04/19/17 04:46 Urine Source RANDOM 04/15/17 19:30 Urine Color YELLOW 04/15/17 19:30 Urine Clarity CLEAR (CLEAR) 04/15/17 19:30 Urine pH 6.0 (4.6 - 8.0) 04/15/17 19:30 Ur Specific [place] 1.020 (1.005-1.030) 04/15/17 19:30 Urine Protein TRACE mg/dL (NEGATIVE) 04/15/17 19:30 Urine Glucose (UA) NEGATIVE mg/dL (NEGATIVE) 04/15/17 19:30 Urine Ketones NEGATIVE mg/dL (NEGATIVE) 04/15/17 19:30 Urine Blood NEGATIVE (NEGATIVE) 04/15/17 19:30 Urine Nitrate NEGATIVE (NEGATIVE) 04/15/17 19:30 Urine Bilirubin NEGATIVE (NEGATIVE) 04/15/17 19:30 Urine Urobilinogen 0.2 E.U./dL (0.2 - 1.0) 04/15/17 19:30 Ur Leukocyte Esterase NEGATIVE (NEGATIVE) 04/15/17 19:30 Urine RBC NONE SEEN /hpf (0-5) 04/15/17 19:30 Urine WBC NONE SEEN /hpf (0-5) 04/15/17 19:30 Ur Epithelial Cells NONE SEEN /lpf (FEW) 04/15/17 19:30 Urine Bacteria NONE SEEN /hpf (NONE SEEN) 04/15/17 19:30 Vancomycin Trough 3.5 ug/mL (10-20) L 04/19/17 09:00 Urine Opiates Screen NEGATIVE (NEGATIVE) 04/15/17 19:30 Urine Methadone Screen NEGATIVE (NEGATIVE) 04/15/17 19:30 Ur Barbiturates Screen NEGATIVE (NEGATIVE) 04/15/17 19:30 Ur Tricyclics Screen NEGATIVE (NEGATIVE) 04/15/17 19:30 Ur Phencyclidine Scrn NEGATIVE (NEGATIVE) 04/15/17 19:30 Amphetamines Screen NEGATIVE (NEGATIVE) 04/15/17 19:30 U Methamphetamines Scrn NEGATIVE (NEGATIVE) 04/15/17 19:30 U Benzodiazepines Scrn NEGATIVE (NEGATIVE) 04/15/17 19:30 U Cocaine Metab Screen NEGATIVE (NEGATIVE) 04/15/17 19:30 U Cannabinoids Screen NEGATIVE (NEGATIVE) 04/15/17 19:30 - Physical Exam Vitals and I&O: Vital Signs Temp 97.8 F 04/20/17 16:00 Pulse 116 04/20/17 16:00 Resp 23 04/20/17 16:00 BP 109/83 04/20/17 16:00 Pulse Ox 99 04/20/17 16:00 Intake & Output 04/19/17 04/20/17 04/20/17 18:59 06:59 18:59 Intake Total 1075 1300 50 Output Total 2200 1700 Balance -1125 -400 50 Weight (lbs) 73.709 kg 74.389 kg Intake: Intake, IV Amount 175 1100 50 D5-0.9%Ns 1,000 ml @ 50 75 1000 mls/hr IV .Q20H [facility] Rx#: [id number] Piperacillin Sodium/ 100 100 50 Tazobact 3.375 gm In Sodium Chloride 0.9% 50 ml @ 100 mls/hr IV Q6HR [facility] Rx#:[id number] Other 900 200 Output: Gastric Drainage 1800 1300 Urine 400 400 Other: # Bowel Movements 1 Stool Characteristics Soft Soft Liquid Liquid Brown Brown Active Medications: Current Medications Acetaminophen (Tylenol) 650 mg PO Q4H PRN PRN Reason: Pain Stop: 06/15/17 08:47 Last Admin: 04/20/17 09:25 Dose: 650 mg Clonazepam (Klonopin) 0.5 mg PO Q6HR PRN; Protocol PRN Reason: Nasal Congestion Stop: 06/15/17 11:59 Last Admin: 04/18/17 02:22 Dose: 0.5 mg Diltiazem HCl (Cardizem) 5 mg IVP Q4H PRN PRN Reason: HR>130 Stop: 06/18/17 04:44 Last Admin: 04/20/17 14:12 Dose: 5 mg Diltiazem HCl (Cardizem) 30 mg PO Q6HR [facility] Stop: 06/19/17 11:59 Last Admin: 04/20/17 12:16 Dose: 30 mg Docusate Sodium (Colace) 100 mg PO BID [facility] Stop: 06/15/17 08:59 Last Admin: 04/20/17 08:42 Dose: 100 mg Heparin Sodium (Porcine) (Heparin) 5,000 units SUBQ Q12HR [facility] Stop: 06/15/17 20:59 Last Admin: 04/20/17 08:43 Dose: 5,000 units Piperacillin Sod/Tazobactam (Sod 3.375 gm/ Sodium Chloride) 50 mls @ 100 mls/ hr IV Q6HR [facility] Stop: 06/15/17 00:00 Last Infusion: 04/20/17 12:45 Dose: Infused Diltiazem HCl 125 mg/ Dextrose 125 mls @ 5 mls/hr IV TITR [facility]; 5 MG/HR PRN Reason: Protocol Stop: 06/17/17 04:54 Last Titration: 04/18/17 08:00 Dose: 10 mg/hr, 10 mls/hr Norepinephrine Bitartrate 4 mg (/ Dextrose) 254 mls @ 0 mls/hr IV PRN PRN; Protocol; Per Protocol PRN Reason: BP MAINTENANCE (PER PROTOCOL) Stop: 06/18/17 07:23 Potassium Chloride/Dextrose/Sod Cl (D5-0.45ns W/20 Meq Kcl) 1,000 mls @ 125 mls /hr IV .Q8H [facility] Stop: 06/19/17 08:23 Last Admin: 04/20/17 09:20 Dose: 125 mls/hr Lactobacillus Rhamnosus (Culturelle) 1 each PO DAILY [facility] Stop: 06/17/17 08:59 Last Admin: 04/20/17 08:42 Dose: 1 each Lactulose (Cephulac) 30 gm PO Q6HR [facility] Stop: 06/18/17 11:59 Last Admin: 04/20/17 12:15 Dose: 30 gm Magnesium Hydroxide (Milk Of Magnesia) 30 ml PO HS PRN PRN Reason: Constipation Stop: 06/15/17 08:47 Last Admin: 04/18/17 02:21 Dose: 30 ml Memantine (Namenda) 5 mg PO BID [facility] Stop: 06/15/17 08:59 Last Admin: 04/20/17 08:42 Dose: 5 mg Mineral Oil (Mineral Oil 30 Ml) 30 ml NG QID [facility] Stop: 06/16/17 17:14 Last Admin: 04/20/17 12:16 Dose: 30 ml Miscellaneous (Vte Chemical Prophylaxis Screen/ Admission) 1 ea PRN PRN PRN Reason: PROTOCOL Stop: 06/15/17 10:14 Miscellaneous (Probiotic Screen) 1 ea PRN PRN PRN Reason: PROTOCOL Stop: 06/16/17 16:59 Pantoprazole Sodium (Protonix) 40 mg IVP DAILY [facility] Stop: 06/17/17 13:29 Last Admin: 04/20/17 08:42 Dose: 40 mg Polyethylene Glycol/Electrolytes (Golytely) 4,000 ml PO X1 ONE Stop: 04/20/17 16:18 General: no acute distress, well developed, well nourished HEENT: atraumatic, normocephalic, PERRLA Neck: supple, no thyromegaly Cardiovascular: S1S2, regular Lungs: clear to auscultation bilaterally, clear to percussion Abdomen: soft, tender, bowel sounds, no distended Extremities: no cyanosis, no clubbing, no edema Neurological: awake Skin: intact Infectious Disease Assmt/Plan - Problem List Patient Problems: All Active Problems Depression (Acute) F32.9 INCREASED AGITATION (Acute 03/10/14) Mental health problem (Acute) F48.9 Psychosis (Acute) F29 - Assessment Assessment: 1. Sepsis, lactic acidosis improving. 2. dementia. 3. Fecal impaction. 4. CHF. - Plan Plan: Continue zosyn. check lactic acid. Nutritional Asmnt/Malnutr-PDOC - Dietary Evaluation Malnutrition Findings (Please click <Entered> for more info): Nutritional Asmnt/Malnutrition Start: 04/17/17 15: 06 Text: Status: Complete Freq: Document 04/17/17 15:06 [email or web address] (Rec: 04/17/17 15:26 BEV [id number]) Nutritional Asmnt/Malnutrition Patient General Information Nutritional Screening High Risk Screening Diagnosis Recurrent GI problem, sepsis protocol Pertinent Medical Hx/Surgical Hx Dementia, psychotic disorder, dysphagia, osteoarthritis, DJD , HTN, CAD, bed bound condition Subjective Information 61 year old male from SNF. 04/16 CT abdomen: severe distal fecal impaction, renal cyst. Spoke to RN, RN stated last BM on 04/12, pt is currently NPO with ngt to low intermittent suctioning out greenish liquid , abdomen is tender. Spoke to family at bedside, confirmed usual diet and pt's preferences. Limited physical assessment, pt appeared overall thin. Current Diet Order/ Nutrition Support NPO Pertinent Medications D5-0.45ns, Colace, MOM, Vancomycin Pertinent Labs 04/17: glucose 178H Nutritional Hx/Data Height 1.88 m Height (Calculated Centimeters) 188.0 Current Weight (lbs) 74.707 kg Weight (Calculated Kilograms) 74.7 Weight (Calculated Grams) 14715.7 [place] Body Weight 190 Weight Status Approriate GI Symptoms Cultural/Ethnic/Evangelical Belief Dislike fish. Usual diet at home [facility]: puree, ANTHONY, 4oz HPN between meals Skin Integrity/Comment: [place] 14. SKin intact. Estimated Nutritional Goals BEE in Kcals: Using Current wt Calories/Kcals/Kg CBW 164.7lb/74.9kg Kcals Calculated 1873-2247kcal (25-30kcal/kg) Protein: Using Current wt Protein Calculated 75g (1g/kg) Fluid: ml 1873-2247ml (1ml/kcal) Nutritional Problem 1. Problem Problem Altered GI function related to Etiology bowel movement, renal aeb Signs/Symptoms: CT severe distal fecal impaction, renal cyst Intervention/Recommendation Comments 1. When medically appropriate to reusme diet, recommend pureed diet with prune juice every meal or as needed. Expected Outcomes/Goals Expected Outcomes/Goals 1. PO intake to resume and meet at least 75% of estimated nutritional needs.
[2017-04-21] MEDS: D5-0.45NS w/20 mEq KCL 1,000 ML IV SCH (03:30)
--- NOTE | 2017-04-21 03:46 | Admit Criteria Form ---
Admit Criteria Forms - Admit Criteria Diagnosis: SEPSIS and OTHER FEBRILE ILLNESS, W/O FOCAL INFECTION Clinical Indications for Admission to Inpatient Care ( Place 'X' for any and all applicable criteria): Admission to inpatient status for two midnights or more is indicated for ANY ONE of the following (1)(2)(3): [ ] I. Bacteremia [X ]II. Suspected or identified specific infection requiring hospitalization (eg, meningitis, endocarditis) [ ]III. Hemodynamic instability [ ]IV. Temperature > 104.9 0F (40.5 0C) (oral) [ ]V. Core (rectal) temperature < 95 0F (35 0C) (eg, thought to be due to infection) [ ]. Altered mental status that is severe or persistent [ ]VII. Failure or unavailability of outpatient antimicrobial treatment [ ]VIII. Hypoxemia [ ]IX. Seizures [ ]X. New coagulopathy (eg, reduced platelet count consistent with disseminated intravascular coagulation) [ ]XI. Inpatient admission required [B] rather than observation care because of 1 or more of the following 1) Tachypnea not responsive to outpatient or observation treatment 2) Metabolic disorder (eg, hypoglycemia, hyperglycemia, metabolic acidosis ) that persists despite outpatient and observation care treatment 3) Evidence of end-organ dysfunction (eg, rising creatinine, myocardial ischemia, rising liver function tests) that is severe or persists despite observation care treatment 4) Temperature > 103.1 0F (39.5 0C) (oral) that is not responsive to observation care treatment 5) Dehydration that is severe or persistent 6) Parenteral antimicrobial regimen that must be implemented on inpatient basis (eg, infusion or monitoring needs beyond capabilities of outpatient parenteral therapy) 7) Strict or protective (eg, laminar flow) isolation 8) Other condition, treatment or monitoring requiring inpatient admission Extended stay beyond goal length of stay may be needed for(1)(3) [ ]a) Persistent Hypotension [ ]b) Positive blood cultures [ ]c) Lack of improvement on antimicrobial treatment (eg, continued fever) [ ]d) Active comorbid illness (eg, heart failure, renal failure) [ ]e) High-risk febrile neutropenia [ ]f) Insufficient oral intake [ ]g) insufficient oral intake The original [email or web address] content created by [email or web address] has been revised. The portions of the content which have been revised are identified through the use of italic text or in bold, and [facility] has neither reviewed nor approved the modified material. All other unmodified content is copyright [facility]. Please see references footnoted in the original [facility] edition 2017 Admit Criteria Met?: Yes
[2017-04-21 06:14] LABS: HEMATOCRIT 50.5 % (39.0-49.0); MEAN CELL VOLUME 87.8 fl (80-99); MEAN CORPUSCULAR HEMOGLOBIN 29.5 pg (26.0-30.0); MEAN CORPUSCULAR HGB CONC 33.6 pg (28.0-36.0); MEAN PLATELET VOLUME 8.8 fl; RED BLOOD COUNT 5.75 Mil/cmm (4.30-5.70); RED CELL DISTRIBUTION WIDTH 14.3 % (11.5-20.0)
[2017-04-21 06:24] LABS: ANION GAP 13.3 (7.0-16.0); BUN/CREATININE RATIO 14.7; CALCIUM SERUM 10.3 mg/dL (8.6-10.3); CARBON DIOXIDE 31.5 mEq/L (21.0-31.0); CREATININE - SERUM 1.7 mg/dL (0.7-1.3)
[2017-04-21 06:26] LABS: POTASSIUM SERUM 2.8 mEq/L (3.5-5.1)
[2017-04-21 06:44] LABS: PLATELET COUNT 276 Th/cmm (150-400); WHITE BLOOD COUNT 19.5 Th/cmm (4.8-10.8)
[2017-04-21 06:46] LABS: BAND NEUTROPHILE 6 % (0-10); NEUTROPHILS 79 % (40-80); TOTAL CELLS COUNTED 100
[2017-04-21] MEDS: Diltiazem 30 mg Tab PO SCH ×3 (06:55→18:21)
[2017-04-21] MEDS: Lactulose 10 Gm/15 mL 30mL UDC PO SCH ×4 (07:00→17:27)
[2017-04-21] MEDS ORDERED: Potassium Chloride 40 MEQ, Lidocaine 1% 20mL Vial 25 MG in Sodium Chloride 0.9% 250 ML IV ONE (08:34)
[2017-04-21] MEDS ORDERED: Sodium Chloride 0.9% 500 ML IV ONE (08:41)
[2017-04-21] MEDS: Dextrose 5% 1,000 ML IV SCH ×2 (08:45→20:50)
[2017-04-21] MEDS ORDERED: Dextrose 5% 1,000 ML IV SCH (08:45)
[2017-04-21] MEDS: Diltiazem 5 mg/mL 5mL Vial IVP PRN (09:10)
[2017-04-21] MEDS: Lactobacillus Rhamnosus 10 Billion CFU Capsule PO SCH (09:10)
[2017-04-21] MEDS ORDERED: Diltiazem 5 mg/mL 5mL Vial IVP PRN (09:30)
--- NOTE | 2017-04-21 12:19 | Infectious Disease Prog Note ---
Infectious Disease Subjective - Review of Systems Service Date: 04/21/17 Subjective: No fever, patient was hypoxic on 50% VM with saturation down to 88%. So he was put on 100% NRB. CXR on 04/19/17, showed congestion. Infectious Disease Objective - Results Result Diagrams: 04/21/17 04:40 04/21/17 04:40 Recent Labs: Laboratory Last Values WBC 19.5 Th/cmm (4.8-10.8) H D 04/21/17 04:40 RBC 5.75 Mil/cmm (4.30-5.70) H 04/21/17 04:40 Hgb 17.0 gm/dL (13.2-17.3) 04/21/17 04:40 Hct 50.5 % (39.0-49.0) H 04/21/17 04:40 MCV 87.8 fl (80-99) 04/21/17 04:40 MCH 29.5 pg (26.0-30.0) 04/21/17 04:40 MCHC Differential 33.6 pg (28.0-36.0) 04/21/17 04:40 RDW 14.3 % (11.5-20.0) 04/21/17 04:40 Plt Count 276 Th/cmm (150-400) D 04/21/17 04:40 MPV 8.8 fl 04/21/17 04:40 Neutrophils % ENDS DOWN CHECKER 04/16/17 04:42 Band Neutrophils % 6 % (0-10) 04/21/17 04:40 Lymphocytes % ENDS DOWN CHECKER 04/16/17 04:42 Monocytes % ENDS DOWN CHECKER 04/16/17 04:42 Eosinophils % ENDS DOWN CHECKER 04/16/17 04:42 Basophils % ENDS DOWN CHECKER 04/16/17 04:42 Neutrophils (Manual) 79 % (40-80) 04/21/17 04:40 Lymphocytes 10 % (20-50) L 04/21/17 04:40 Monocytes 5 % (2-10) 04/21/17 04:40 Eosinophils 0 % (0-5) 04/15/17 18:19 Basophils 0 % (0-3) 04/15/17 18:19 Toxic Granulation 1+ 04/20/17 04:10 Platelet Estimate ADEQUATE (NORMAL) 04/20/17 04:10 Platelet Morphology NORMAL (NORMAL) 04/19/17 04:46 RBC Morph Micro Appear NORMAL (NORMAL) 04/19/17 04:46 PT 10.5 SECONDS (9.5-11.5) 04/19/17 04:46 INR 1.01 (0.5-1.4) 04/19/17 04:46 Sodium 153 mEq/L (136-145) H 04/21/17 04:40 Potassium 2.8 mEq/L (3.5-5.1) L* 04/21/17 04:40 Chloride 111 mEq/L (98-107) H 04/21/17 04:40 Carbon Dioxide 31.5 mEq/L (21.0-31.0) H 04/21/17 04:40 Anion Gap 13.3 (7.0-16.0) 04/21/17 04:40 BUN 25 mg/dL (7-25) 04/21/17 04:40 Creatinine 1.7 mg/dL (0.7-1.3) H 04/21/17 04:40 Est GFR ( Amer) 53.3 ml/min (>90) 04/21/17 04:40 Est GFR (Non-Af Amer) 44.1 ml/min 04/21/17 04:40 BUN/Creatinine Ratio 14.7 04/21/17 04:40 Glucose 211 mg/dL (70-105) H 04/21/17 04:40 Hemoglobin A1c % 5.9 % (4.0-6.0) 04/21/17 04:40 Whole Bld Lactic Acid 3.33 mmol/L (0.60-1.99) H* 04/21/17 06:55 Calcium 10.3 mg/dL (8.6-10.3) 04/21/17 04:40 Magnesium 2.7 mg/dL (1.9-2.7) 04/21/17 04:40 Total Bilirubin 2.0 mg/dL (0.3-1.0) H 04/21/17 04:40 AST 31 U/L (13-39) 04/21/17 04:40 ALT 43 U/L (7-52) 04/21/17 04:40 Alkaline Phosphatase 68 U/L (34-104) 04/21/17 04:40 Troponin I 0.01 ng/mL (0.01-0.05) 04/19/17 20:52 B-Natriuretic Peptide 69.1 pg/mL (5.0-100.0) 04/18/17 04:40 Total Protein 7.4 gm/dL (6.0-8.3) 04/21/17 04:40 Albumin 3.7 gm/dL (4.2-5.5) L 04/21/17 04:40 Globulin 3.7 gm/dL 04/21/17 04:40 Albumin/Globulin Ratio 1.0 (1.0-1.8) 04/21/17 04:40 Triglycerides 208 mg/dL (<150) H 04/19/17 04:46 Cholesterol 173 mg/dL (<200) 04/19/17 04:46 LDL Cholesterol Direct 128 mg/dL (75-193) 04/19/17 04:46 HDL Cholesterol 33 mg/dL (23-92) 04/19/17 04:46 Free T4 1.24 ng/dL (0.82-1.77) 04/19/17 04:46 Free T3 1.5 pg/mL (2.0-4.4) L 04/19/17 04:46 TSH 2.58 uIU/ml (0.34-5.60) 04/19/17 04:46 Urine Source RANDOM 04/15/17 19:30 Urine Color YELLOW 04/15/17 19:30 Urine Clarity CLEAR (CLEAR) 04/15/17 19:30 Urine pH 6.0 (4.6 - 8.0) 04/15/17 19:30 Ur Specific [place] 1.020 (1.005-1.030) 04/15/17 19:30 Urine Protein TRACE mg/dL (NEGATIVE) 04/15/17 19:30 Urine Glucose (UA) NEGATIVE mg/dL (NEGATIVE) 04/15/17 19:30 Urine Ketones NEGATIVE mg/dL (NEGATIVE) 04/15/17 19:30 Urine Blood NEGATIVE (NEGATIVE) 04/15/17 19:30 Urine Nitrate NEGATIVE (NEGATIVE) 04/15/17 19:30 Urine Bilirubin NEGATIVE (NEGATIVE) 04/15/17 19:30 Urine Urobilinogen 0.2 E.U./dL (0.2 - 1.0) 04/15/17 19:30 Ur Leukocyte Esterase NEGATIVE (NEGATIVE) 04/15/17 19:30 Urine RBC NONE SEEN /hpf (0-5) 04/15/17 19:30 Urine WBC NONE SEEN /hpf (0-5) 04/15/17 19:30 Ur Epithelial Cells NONE SEEN /lpf (FEW) 04/15/17 19:30 Urine Bacteria NONE SEEN /hpf (NONE SEEN) 04/15/17 19:30 Vancomycin Trough 3.5 ug/mL (10-20) L 04/19/17 09:00 Urine Opiates Screen NEGATIVE (NEGATIVE) 04/15/17 19:30 Urine Methadone Screen NEGATIVE (NEGATIVE) 04/15/17 19:30 Ur Barbiturates Screen NEGATIVE (NEGATIVE) 04/15/17 19:30 Ur Tricyclics Screen NEGATIVE (NEGATIVE) 04/15/17 19:30 Ur Phencyclidine Scrn NEGATIVE (NEGATIVE) 04/15/17 19:30 Amphetamines Screen NEGATIVE (NEGATIVE) 04/15/17 19:30 U Methamphetamines Scrn NEGATIVE (NEGATIVE) 04/15/17 19:30 U Benzodiazepines Scrn NEGATIVE (NEGATIVE) 04/15/17 19:30 U Cocaine Metab Screen NEGATIVE (NEGATIVE) 04/15/17 19:30 U Cannabinoids Screen NEGATIVE (NEGATIVE) 04/15/17 19:30 - Physical Exam Vitals and I&O: Vital Signs Temp 98.6 F 04/21/17 12:00 Pulse 125 04/21/17 12:02 Resp 28 04/21/17 12:00 BP 101/69 04/21/17 12:00 Pulse Ox 97 04/21/17 12:00 Intake & Output 04/20/17 04/21/17 04/21/17 18:59 06:59 18:59 Intake Total 5300 1260 Output Total 2400 2800 Balance 2900 -1540 Weight (lbs) 74.106 kg 71.849 kg Intake: Intake, IV Amount 1100 1100 D5-0.45NS w/20 mEq KCL 1, 1000 1000 000 ml @ 125 mls/hr IV . Q8H [facility] Rx#:[id number] Piperacillin Sodium/ 100 100 Tazobact 3.375 gm In Sodium Chloride 0.9% 50 ml @ 100 mls/hr IV Q6HR [facility] Rx#:[id number] Other 4200 160 Output: Gastric Drainage 2000 2500 Urine 400 300 Other: # Bowel Movements 1 1 Stool Characteristics Soft Soft Liquid Brown Brown Active Medications: Current Medications Acetaminophen (Tylenol) 650 mg PO Q4H PRN PRN Reason: Pain Stop: 06/15/17 08:47 Last Admin: 04/20/17 09:25 Dose: 650 mg Clonazepam (Klonopin) 0.5 mg PO Q6HR PRN; Protocol PRN Reason: Nasal Congestion Stop: 06/15/17 11:59 Last Admin: 04/18/17 02:22 Dose: 0.5 mg Diltiazem HCl (Cardizem) 30 mg PO Q6HR [facility] Stop: 06/19/17 11:59 Last Admin: 04/21/17 12:02 Dose: 30 mg Diltiazem HCl (Cardizem) 10 mg IVP Q4H PRN PRN Reason: HR>130 Stop: 06/18/17 04:44 Docusate Sodium (Colace) 100 mg PO BID [facility] Stop: 06/15/17 08:59 Last Admin: 04/21/17 09:10 Dose: 100 mg Heparin Sodium (Porcine) (Heparin) 5,000 units SUBQ Q12HR [facility] Stop: 06/15/17 20:59 Last Admin: 04/21/17 09:11 Dose: 5,000 units Hydromorphone HCl (Dilaudid) 1 mg IVP Q6HR PRN PRN Reason: Abdominal Pain Stop: 06/20/17 08:36 Piperacillin Sod/Tazobactam (Sod 3.375 gm/ Sodium Chloride) 50 mls @ 100 mls/ hr IV Q6HR [facility] Stop: 06/15/17 00:00 Last Infusion: 04/21/17 06:30 Dose: Infused Norepinephrine Bitartrate 4 mg (/ Dextrose) 254 mls @ 0 mls/hr IV PRN PRN; Protocol; Per Protocol PRN Reason: BP MAINTENANCE (PER PROTOCOL) Stop: 06/18/17 07:23 Potassium Chloride 40 meq/Lidocaine HCl 25 mg/ Sodium Chloride 272.5 mls @ 68 mls/hr IV X1 ONE Stop: 04/21/17 12:34 Last Admin: 04/21/17 08:40 Dose: 68 mls/hr Dextrose (D5w) 1,000 mls @ 125 mls/hr IV .Q8H [facility] Stop: 06/20/17 08:44 Last Admin: 04/21/17 08:45 Dose: 125 mls/hr Lactobacillus Rhamnosus (Culturelle) 1 each PO DAILY [facility] Stop: 06/17/17 08:59 Last Admin: 04/21/17 09:10 Dose: 1 each Lactulose (Cephulac) 30 gm PO Q6HR [facility] Stop: 06/18/17 11:59 Last Admin: 04/21/17 11:49 Dose: 30 gm Magnesium Hydroxide (Milk Of Magnesia) 30 ml PO HS PRN PRN Reason: Constipation Stop: 06/15/17 08:47 Last Admin: 04/18/17 02:21 Dose: 30 ml Memantine (Namenda) 5 mg PO BID [facility] Stop: 06/15/17 08:59 Last Admin: 04/21/17 09:10 Dose: 5 mg Mineral Oil (Mineral Oil 30 Ml) 30 ml NG QID [facility] Stop: 06/16/17 17:14 Last Admin: 04/21/17 09:10 Dose: 30 ml Miscellaneous (Vte Chemical Prophylaxis Screen/ Admission) 1 [facility] PRN PRN PRN Reason: PROTOCOL Stop: 06/15/17 10:14 Miscellaneous (Probiotic Screen) 1 [facility] PRN PRN PRN Reason: PROTOCOL Stop: 06/16/17 16:59 Pantoprazole Sodium (Protonix) 40 mg IVP DAILY [facility] Stop: 06/17/17 13:29 Last Admin: 04/21/17 09:09 Dose: 40 mg General: no acute distress, cachectic HEENT: atraumatic, normocephalic, PERRLA, EOMI, moist mucous membrane Neck: supple, no thyromegaly Cardiovascular: S1S2, regular Lungs: clear to percussion, crackles Abdomen: soft, bowel sounds, no tender, no distended Extremities: no cyanosis, no clubbing, no edema Neurological: other (opens his eyes.) Infectious Disease Assmt/Plan - Problem List Patient Problems: All Active Problems Depression (Acute) F32.9 INCREASED AGITATION (Acute 03/10/14) Mental health problem (Acute) F48.9 Psychosis (Acute) F29 - Assessment Assessment: 1. Sepsis, lactic acidosis. 2. dementia. 3. Fecal impaction/ ileus, gastroparesis. 4. CHF. 5. Leukocytosis worse. 6. Respiratory insufficiency. 7. Acute renal failure with hypokalemia. - Plan Plan: Continue zosyn. check lactic acid. check CXR and KUB. Nutritional Asmnt/Malnutr-PDOC - Dietary Evaluation Malnutrition Findings (Please click <Entered> for more info): Nutritional Asmnt/Malnutrition Start: 04/17/17 15: 06 Text: Status: Complete Freq: Document 04/17/17 15:06 KATELYNNBRISSA (Rec: 04/17/17 15:26 [email or web address] [id number]) Nutritional Asmnt/Malnutrition Patient General Information Nutritional Screening High Risk Screening Diagnosis Recurrent GI problem, sepsis protocol Pertinent Medical Hx/Surgical Hx Dementia, psychotic disorder, dysphagia, osteoarthritis, DJD , HTN, CAD, bed bound condition Subjective Information 61 year old male from SNF. 04/16 CT abdomen: severe distal fecal impaction, renal cyst. Spoke to RN, RN stated last BM on 04/12, pt is currently NPO with ngt to low intermittent suctioning out greenish liquid , abdomen is tender. Spoke to family at bedside, confirmed usual diet and pt's preferences. Limited physical assessment, pt appeared overall thin. Current Diet Order/ Nutrition Support NPO Pertinent Medications D5-0.45ns, Colace, MOM, Vancomycin Pertinent Labs 04/17: glucose 178H Nutritional Hx/Data Height 1.88 m Height (Calculated Centimeters) 188.0 Current Weight (lbs) 74.707 kg Weight (Calculated Kilograms) 74.7 Weight (Calculated Grams) 17123.7 [place] Body Weight 190 Weight Status Approriate GI Symptoms Cultural/Ethnic/Mandaeism Belief Dislike fish. Usual diet at home [facility]: puree, ANTHONY, 4oz HPN between meals Skin Integrity/Comment: [place] 14. SKin intact. Estimated Nutritional Goals BEE in Kcals: Using Current wt Calories/Kcals/Kg CBW 164.7lb/74.9kg Kcals Calculated 1873-2247kcal (25-30kcal/kg) Protein: Using Current wt Protein Calculated 75g (1g/kg) Fluid: ml 1873-2247ml (1ml/kcal) Nutritional Problem 1. Problem Problem Altered GI function related to Etiology bowel movement, renal aeb Signs/Symptoms: CT severe distal fecal impaction, renal cyst Intervention/Recommendation Comments 1. When medically appropriate to reusme diet, recommend pureed diet with prune juice every meal or as needed. Expected Outcomes/Goals Expected Outcomes/Goals 1. PO intake to resume and meet at least 75% of estimated nutritional needs.
[2017-04-21] MEDS: HYDROmorphone 1 mg/mL 1mL Syr IVP PRN ×2 (12:27→20:07)
--- NOTE | 2017-04-21 13:06 | GI Progress Note ---
Subjective - Review of Systems Service Date: 04/21/17 Subjective: Pt received 4L golytely last night, and had large brown BM as per RN. Still with rising leukocytosis and high NG output otherwise Objective - Results Result Diagrams: 04/21/17 04:40 04/21/17 04:40 Recent Labs: Laboratory Last Values WBC 19.5 Th/cmm (4.8-10.8) H D 04/21/17 04:40 RBC 5.75 Mil/cmm (4.30-5.70) H 04/21/17 04:40 Hgb 17.0 gm/dL (13.2-17.3) 04/21/17 04:40 Hct 50.5 % (39.0-49.0) H 04/21/17 04:40 MCV 87.8 fl (80-99) 04/21/17 04:40 MCH 29.5 pg (26.0-30.0) 04/21/17 04:40 MCHC Differential 33.6 pg (28.0-36.0) 04/21/17 04:40 RDW 14.3 % (11.5-20.0) 04/21/17 04:40 Plt Count 276 Th/cmm (150-400) D 04/21/17 04:40 MPV 8.8 fl 04/21/17 04:40 Neutrophils % [employer] 04/16/17 04:42 Band Neutrophils % 6 % (0-10) 04/21/17 04:40 Lymphocytes % [employer] 04/16/17 04:42 Monocytes % [employer] 04/16/17 04:42 Eosinophils % [employer] 04/16/17 04:42 Basophils % [employer] 04/16/17 04:42 Neutrophils (Manual) 79 % (40-80) 04/21/17 04:40 Lymphocytes 10 % (20-50) L 04/21/17 04:40 Monocytes 5 % (2-10) 04/21/17 04:40 Eosinophils 0 % (0-5) 04/15/17 18:19 Basophils 0 % (0-3) 04/15/17 18:19 Toxic Granulation 1+ 04/20/17 04:10 Platelet Estimate ADEQUATE (NORMAL) 04/20/17 04:10 Platelet Morphology NORMAL (NORMAL) 04/19/17 04:46 RBC Morph Micro Appear NORMAL (NORMAL) 04/19/17 04:46 PT 10.5 SECONDS (9.5-11.5) 04/19/17 04:46 INR 1.01 (0.5-1.4) 04/19/17 04:46 Sodium 153 mEq/L (136-145) H 04/21/17 04:40 Potassium 2.8 mEq/L (3.5-5.1) L* 04/21/17 04:40 Chloride 111 mEq/L (98-107) H 04/21/17 04:40 Carbon Dioxide 31.5 mEq/L (21.0-31.0) H 04/21/17 04:40 Anion Gap 13.3 (7.0-16.0) 04/21/17 04:40 BUN 25 mg/dL (7-25) 04/21/17 04:40 Creatinine 1.7 mg/dL (0.7-1.3) H 04/21/17 04:40 Est GFR ( Amer) 53.3 ml/min (>90) 04/21/17 04:40 Est GFR (Non-Af Amer) 44.1 ml/min 04/21/17 04:40 BUN/Creatinine Ratio 14.7 04/21/17 04:40 Glucose 211 mg/dL (70-105) H 04/21/17 04:40 Hemoglobin A1c % 5.9 % (4.0-6.0) 04/21/17 04:40 Whole Bld Lactic Acid 3.33 mmol/L (0.60-1.99) H* 04/21/17 06:55 Calcium 10.3 mg/dL (8.6-10.3) 04/21/17 04:40 Magnesium 2.7 mg/dL (1.9-2.7) 04/21/17 04:40 Total Bilirubin 2.0 mg/dL (0.3-1.0) H 04/21/17 04:40 AST 31 U/L (13-39) 04/21/17 04:40 ALT 43 U/L (7-52) 04/21/17 04:40 Alkaline Phosphatase 68 U/L (34-104) 04/21/17 04:40 Troponin I 0.01 ng/mL (0.01-0.05) 04/19/17 20:52 B-Natriuretic Peptide 69.1 pg/mL (5.0-100.0) 04/18/17 04:40 Total Protein 7.4 gm/dL (6.0-8.3) 04/21/17 04:40 Albumin 3.7 gm/dL (4.2-5.5) L 04/21/17 04:40 Globulin 3.7 gm/dL 04/21/17 04:40 Albumin/Globulin Ratio 1.0 (1.0-1.8) 04/21/17 04:40 Triglycerides 208 mg/dL (<150) H 04/19/17 04:46 Cholesterol 173 mg/dL (<200) 04/19/17 04:46 LDL Cholesterol Direct 128 mg/dL (75-193) 04/19/17 04:46 HDL Cholesterol 33 mg/dL (23-92) 04/19/17 04:46 Free T4 1.24 ng/dL (0.82-1.77) 04/19/17 04:46 Free T3 1.5 pg/mL (2.0-4.4) L 04/19/17 04:46 TSH 2.58 uIU/ml (0.34-5.60) 04/19/17 04:46 Urine Source RANDOM 04/15/17 19:30 Urine Color YELLOW 04/15/17 19:30 Urine Clarity CLEAR (CLEAR) 04/15/17 19:30 Urine pH 6.0 (4.6 - 8.0) 04/15/17 19:30 Ur Specific [place] 1.020 (1.005-1.030) 04/15/17 19:30 Urine Protein TRACE mg/dL (NEGATIVE) 04/15/17 19:30 Urine Glucose (UA) NEGATIVE mg/dL (NEGATIVE) 04/15/17 19:30 Urine Ketones NEGATIVE mg/dL (NEGATIVE) 04/15/17 19:30 Urine Blood NEGATIVE (NEGATIVE) 04/15/17 19:30 Urine Nitrate NEGATIVE (NEGATIVE) 04/15/17 19:30 Urine Bilirubin NEGATIVE (NEGATIVE) 04/15/17 19:30 Urine Urobilinogen 0.2 E.U./dL (0.2 - 1.0) 04/15/17 19:30 Ur Leukocyte Esterase NEGATIVE (NEGATIVE) 04/15/17 19:30 Urine RBC NONE SEEN /hpf (0-5) 04/15/17 19:30 Urine WBC NONE SEEN /hpf (0-5) 04/15/17 19:30 Ur Epithelial Cells NONE SEEN /lpf (FEW) 04/15/17 19:30 Urine Bacteria NONE SEEN /hpf (NONE SEEN) 04/15/17 19:30 Vancomycin Trough 3.5 ug/mL (10-20) L 04/19/17 09:00 Urine Opiates Screen NEGATIVE (NEGATIVE) 04/15/17 19:30 Urine Methadone Screen NEGATIVE (NEGATIVE) 04/15/17 19:30 Ur Barbiturates Screen NEGATIVE (NEGATIVE) 04/15/17 19:30 Ur Tricyclics Screen NEGATIVE (NEGATIVE) 04/15/17 19:30 Ur Phencyclidine Scrn NEGATIVE (NEGATIVE) 04/15/17 19:30 Amphetamines Screen NEGATIVE (NEGATIVE) 04/15/17 19:30 U Methamphetamines Scrn NEGATIVE (NEGATIVE) 04/15/17 19:30 U Benzodiazepines Scrn NEGATIVE (NEGATIVE) 04/15/17 19:30 U Cocaine Metab Screen NEGATIVE (NEGATIVE) 04/15/17 19:30 U Cannabinoids Screen NEGATIVE (NEGATIVE) 04/15/17 19:30 - Physical Exam Vitals and I&O: Vital Signs Temp 98.6 F 04/21/17 12:00 Pulse 125 04/21/17 12:02 Resp 28 04/21/17 12:00 BP 101/69 04/21/17 12:00 Pulse Ox 97 04/21/17 12:00 Intake & Output 04/20/17 04/21/17 04/21/17 18:59 06:59 18:59 Intake Total 5300 1260 1050 Output Total 2400 2800 Balance 2900 -1540 1050 Weight (lbs) 74.106 kg 71.849 kg Intake: Intake, IV Amount 1100 1100 1050 D5-0.45NS w/20 mEq KCL 1, 1000 1000 1000 000 ml @ 125 mls/hr IV . Q8H [facility] Rx#:[id number] Piperacillin Sodium/ 100 100 50 Tazobact 3.375 gm In Sodium Chloride 0.9% 50 ml @ 100 mls/hr IV Q6HR [facility] Rx#:[id number] Other 4200 160 Output: Gastric Drainage 2000 2500 Urine 400 300 Other: # Bowel Movements 1 1 Stool Characteristics Soft Soft Liquid Brown Brown Active Medications: Current Medications Acetaminophen (Tylenol) 650 mg PO Q4H PRN PRN Reason: Pain Stop: 06/15/17 08:47 Last Admin: 04/20/17 09:25 Dose: 650 mg Clonazepam (Klonopin) 0.5 mg PO Q6HR PRN; Protocol PRN Reason: Nasal Congestion Stop: 06/15/17 11:59 Last Admin: 04/18/17 02:22 Dose: 0.5 mg Diltiazem HCl (Cardizem) 30 mg PO Q6HR [facility] Stop: 06/19/17 11:59 Last Admin: 04/21/17 12:02 Dose: 30 mg Diltiazem HCl (Cardizem) 10 mg IVP Q4H PRN PRN Reason: HR>130 Stop: 06/18/17 04:44 Docusate Sodium (Colace) 100 mg PO BID [facility] Stop: 06/15/17 08:59 Last Admin: 04/21/17 09:10 Dose: 100 mg Heparin Sodium (Porcine) (Heparin) 5,000 units SUBQ Q12HR [facility] Stop: 06/15/17 20:59 Last Admin: 04/21/17 09:11 Dose: 5,000 units Hydromorphone HCl (Dilaudid) 1 mg IVP Q6HR PRN PRN Reason: Abdominal Pain Stop: 06/20/17 08:36 Last Admin: 04/21/17 12:27 Dose: 1 mg Piperacillin Sod/Tazobactam (Sod 3.375 gm/ Sodium Chloride) 50 mls @ 100 mls/ hr IV Q6HR [facility] Stop: 06/15/17 00:00 Last Infusion: 04/21/17 12:30 Dose: Infused Norepinephrine Bitartrate 4 mg (/ Dextrose) 254 mls @ 0 mls/hr IV PRN PRN; Protocol; Per Protocol PRN Reason: BP MAINTENANCE (PER PROTOCOL) Stop: 06/18/17 07:23 Dextrose (D5w) 1,000 mls @ 125 mls/hr IV .Q8H [facility] Stop: 06/20/17 08:44 Last Admin: 04/21/17 08:45 Dose: 125 mls/hr Lactobacillus Rhamnosus (Culturelle) 1 each PO DAILY [facility] Stop: 06/17/17 08:59 Last Admin: 04/21/17 09:10 Dose: 1 each Lactulose (Cephulac) 30 gm PO Q6HR [facility] Stop: 06/18/17 11:59 Last Admin: 04/21/17 11:49 Dose: 30 gm Magnesium Hydroxide (Milk Of Magnesia) 30 ml PO HS PRN PRN Reason: Constipation Stop: 06/15/17 08:47 Last Admin: 04/18/17 02:21 Dose: 30 ml Memantine (Namenda) 5 mg PO BID [facility] Stop: 06/15/17 08:59 Last Admin: 04/21/17 09:10 Dose: 5 mg Mineral Oil (Mineral Oil 30 Ml) 30 ml NG QID [facility] Stop: 06/16/17 17:14 Last Admin: 04/21/17 12:20 Dose: 30 ml Miscellaneous (Vte Chemical Prophylaxis Screen/ Admission) 1 [facility] PRN PRN PRN Reason: PROTOCOL Stop: 06/15/17 10:14 Miscellaneous (Probiotic Screen) 1 [facility] PRN PRN PRN Reason: PROTOCOL Stop: 06/16/17 16:59 Pantoprazole Sodium (Protonix) 40 mg IVP DAILY [facility] Stop: 06/17/17 13:29 Last Admin: 04/21/17 09:09 Dose: 40 mg Polyethylene Glycol/Electrolytes (Golytely) 4,000 ml PO X1 ONE Stop: 04/21/17 12:46 General: Moderate distress Abdomen: Soft, Tender (tender in all quadrants, mild to mod distension, no rebound tenderness) Assessment/Plan - Problem List Patient Problems: All Active Problems Depression (Acute) F32.9 INCREASED AGITATION (Acute 03/10/14) Mental health problem (Acute) F48.9 Psychosis (Acute) F29 - Assessment Assessment: # Fecal impaction # Severe sepsis The patient did respond to golytely overnight with large BM, although he still likely has large amount of stool in the colon. He still has high NG output. We will get another KUB now to monitor stool load, and give additional golytely. Manual disempaction was attempted prior and unsuccessful. Colonoscopy is not an option as solid stool is not able to be removed through the scope. Plan: - Additional 4L golytely tonight given slowly - KUB now - cont abx as per ID - correct electrolyte derangements as this can impair colonic mobility - NPO with NG in place
--- NOTE | 2017-04-22 11:00 | Discharge Summary ---
DATE OF DISCHARGE: 04/21/2017 PATIENT'S IDENTIFICATION: A 61-year-old male. PRINCIPAL DIAGNOSES: 1. Small-bowel obstruction. 2. Colitis with fecal stasis. 3. Atrial fibrillation with rapid ventricular response. 4. Acute respiratory failure. 5. Bilateral pneumonia. 6. Alzheimer's dementia. 7. Hypertension. 8. Coronary artery disease. 9. Dysphagia. 10. Psychotic disorder. 11. Degenerative joint disease. 12. Bedbound condition. 13. Hypernatremia 14. Hypokalemia. 15. Acute kidney injury. BRIEF STATEMENT FOR THE REASON FOR ADMISSION: The patient is a 61-year-old male who resides at a local fdc, brought in to the Emergency Room for evaluation of weakness, lethargy and refusing to eat. When the patient was evaluated in the Emergency Room, the patient was noted to have constipation and distention along with respiratory distress and sepsis. The patient was admitted to the hospital for further treatment. Please refer to my dictated medical H and P for further information. HOSPITAL COURSE: The patient was admitted to telemetry unit. The patient was kept n.p.o., IV antibiotic was started. CT scan of the abdomen, pelvis, and chest was requested. Infectious Disease consultation was requested. The patient was also seen by programmer analyst. CT scan of the abdomen and pelvis consistent with fecal stasis with colitis. The patient was also given oxygen and nebulizer treatment while patient was in the medical floor. The patient's and son were informed of the patient's underlying diagnosis and treatment plan. Unfortunately, the patient's condition deteriorated. The patient had atrial fibrillation with rapid ventricular rate. The patient was transferred to ICU where the patient was seen by steel box toe inserter. A 2D echocardiogram was remarkable for normal liver function with normal left atrial size. The patient was not having any BM in spite of giving a lot of laxative. GoLYTELY was given. The patient did have insertion of NG tube and NG suction was bringing out lot of fluids. The patient was noted to have hypernatremia, hypokalemia and acute kidney injury. Input and output were matching as well. The patient's family were constantly updated over the patient's condition, diagnosis, and treatment plan. I did talk with them about the hospice care as well. Initially, they were ready to listen, but subsequently they decided to treat the patient aggressively. The patient was belonging to manage care and their contracted hospital is [facility]. The patient was transferred to [facility] on 04/21/2017 under the care of Dr. Garcia. The patient will be followed by new sets of doctors at new facility. JOB# [id number]
== END 2017-04-21 22:20 | disposition short-term general hospital (02) | DRG 871 ==
LOC: ER 17:47 → ICU 21:46
PROVIDERS: ADMIT Internal Medicine; ATTEND Internal Medicine
PROC: 0D9670Z Drainage of Stomach with Drainage Device, Via Natural or Artificial Opening (ICD-10-PCS; principal; 2017-04-16)
DX: A41.9 Sepsis, unspecified organism (principal); J18.1 Lobar pneumonia, unspecified organism; J96.01 Acute respiratory failure with hypoxia; N17.9 Acute kidney failure, unspecified; I11.0 Hypertensive heart disease with heart failure; E87.0 Hyperosmolality and hypernatremia; K56.60 Unspecified intestinal obstruction; I48.91 Unspecified atrial fibrillation; I50.9 Heart failure, unspecified; K31.84 Gastroparesis; R13.10 Dysphagia, unspecified; M19.90 Unspecified osteoarthritis, unspecified site; I25.10 Atherosclerotic heart disease of native coronary artery without angina pectoris; F29 Unspecified psychosis not due to a substance or known physiological condition; K56.41 Fecal impaction; E87.6 Hypokalemia; R65.20 Severe sepsis without septic shock; K52.9 Noninfective gastroenteritis and colitis, unspecified; G30.9 Alzheimer's disease, unspecified; F02.80 Dementia in other diseases classified elsewhere, unspecified severity, without behavioral disturbance, psychotic disturbance, mood disturbance, and anxiety; Z74.01 Bed confinement status; Z88.1 Allergy status to other antibiotic agents; Z79.899 Other long term (current) drug therapy
CPT/HCPCS: 36415-UA; 71010-TC; 71250-TC; 76770-TC; 80053-TC; 80061-TC; 80202-TC; 80307; 81001-TC; 83036-90; 83605; 83735-TC; 83880-TC; 84439-90; 84443-TC; 84479-90; 84484-TC; 85007-TC; 85027-TC; 85610-TC; 87070; 90779; 90784; 90799; 93005; 96375; 96379; C9113; J0153; J0696; J0780; J1160; J1170; J1644; J1940; J1956; J2001; J2370; J2543; J3370; J3480; J7030; J7040; J7042; J7070; X6452; Z7610